=== PATIENT | male | born 1940 | race Caucasian/White ===

== ENCOUNTER 2021-10-21 21:01 | Outpatient (CLI) | payer MEDICARE, SELFPAY | END 2021-10-21 21:02 | disposition home or self-care (01) | LOC: AMB 10-28 20:25 | PROVIDERS: PCP Family Medicine; Visit Provider Family Medicine | DX: S99.911A Unspecified injury of right ankle, initial encounter (principal); W01.0XXA Fall on same level from slipping, tripping and stumbling without subsequent striking against object, initial encounter; Y92.008 Other place in unspecified non-institutional (private) residence as the place of occurrence of the external cause; Y99.8 Other external cause status | CPT/HCPCS: A0425; A0427 ==

== ENCOUNTER 2021-10-21 21:37 | Inpatient (IN) | payer MEDICARE, SELFPAY ==
[2021-10-21] VITALS (9 sets, daily range): BP systolic 107–135; BP diastolic 61–84; PULSE 73–86; RESP 12–20; TEMP 36.6; O2SAT 95–97; BMI 36.5
--- NOTE | 2021-10-21 21:46 | CRLHL7_ITS ---
For Patients: As a result of the Cures Act, medical imaging exams and procedure reports are released immediately into your electronic medical record. You may view this report before your referring provider. If you have questions, please contact your health care provider. INDICATION: Fall. Pain. COMPARISON: None. FINDINGS/IMPRESSION: Right ankle, three views. Acute oblique fracture of the distal right fibula with 3-4 millimeters of posterolateral displacement of the distal fragment and slight widening of the medial ankle mortise. Small age-indeterminate avulsion fracture fragments adjacent the tip of the medial malleolus are also present. Soft tissue swelling is noted about the ankle. Dictated by Tyler Davey MD @ 10/21/2021 11:49:58 PM Dictated by: Tyler Davey MD @ 10/21/2021 23:53:13 (Electronically Signed)
--- NOTE | 2021-10-21 21:46 | CRLHL7_ITS ---
For Patients: As a result of the Century Cures Act, medical imaging exams and procedure reports are released immediately into your electronic medical record. You may view this report before your referring provider. If you have questions, please contact your health care provider. INDICATION: FALL CT CERVICAL SPINE WITHOUT CONTRAST TECHNIQUE: Multidetector axial CT imaging was performed through the cervical spine, without contrast. Sagittal and coronal reconstructions were generated. FINDINGS: No acute fractures are identified. Multilevel degenerative change is noted in the cervical spine, including diffuse degenerative disc disease, most marked at C4-5, C5-6, and C6-7, and scattered facet joint degenerative changes. Osseous alignment is within normal limits and no subluxation is seen. Prevertebral soft tissues are unremarkable. Included portions of the airway and lung apices are within normal limits. IMPRESSION: 1. No fracture, subluxation, or other acute finding identified. 2. Cervical spondylosis, as noted above. GUNJAN MOSES MD [facility] Please note that all CT scans at this facility use dose modulation, iterative reconstruction, and/or weight-based dosing when appropriate to reduce radiation dose to as low as reasonably achievable. Dictated by: Tyler Moses MD @ 10/21/2021 23:56:25 (Electronically Signed)
--- NOTE | 2021-10-21 21:47 | CRLHL7_ITS ---
For Patients: As a result of the Century Cures Act, medical imaging exams and procedure reports are released immediately into your electronic medical record. You may view this report before your referring provider. If you have questions, please contact your health care provider. INDICATION: FALL, HEAD INJURY CT HEAD WITHOUT CONTRAST TECHNIQUE: Multiple axial CT images were performed through the head without intravenous contrast administration. COMPARISON: No previous studies are currently available for comparison. FINDINGS: No acute intracranial hemorrhage is identified. No extra-axial collections are evident and there is no mass effect or midline shift. There is mild diffuse age-related brain atrophy. Ventricular size and configuration are within normal limits for the patient`s age. Palacios-white differentiation is within normal limits. There is very much patchy hypodensity in the periventricular white matter, a nonspecific finding which most likely reflects chronic small vessel ischemic change. Intracranial atherosclerotic vascular calcifications are noted. There is a chronic-appearing nasal fracture deformity and a chronic small blowout fracture of the medial wall of the right orbit. No definite acute fractures are noted. Included portions of the paranasal sinuses show scattered minimal mucosal thickening. The mastoid air cells are normally aerated. IMPRESSION: 1. No acute intracranial abnormality identified. 2. Mild age-related brain atrophy, white matter hypodensity consistent with chronic small vessel ischemic change, and intracranial atherosclerotic vascular calcifications. 3. Chronic-appearing nasal fracture deformity and small blowout fracture of the medial wall of the right orbit. GUNJAN MOSES MD [facility] Dictated by Tyler Moses MD @ 10/21/2021 11:58:40 PM Please note that all CT scans at this facility use dose modulation, iterative reconstruction, and/or weight-based dosing when appropriate to reduce radiation dose to as low as reasonably achievable. Dictated by: Tyler Moses MD @ 10/21/2021 23:59:56 (Electronically Signed)
--- NOTE | 2021-10-21 21:49 | ED.GENADULT ---
HPI - General Adult General Time Seen by Provider: 21:39 Date Seen: 10/21/21 Chief complaint: Fall/Minor Trauma Stated complaint: Fall Source: patient Mode of arrival: EMS Limitations: no limitations History of Present Illness HPI narrative: 80-year-old male who presents with syncopal episode and ankle pain. Patient says he was out working today, had a couple of alcohol beverages tonight. Was lightheaded when he went up to go to bed, got up to go to the bathroom and got lightheaded, passed out. Brief loss of consciousness, no confusion afterward and was able to get up. He complains of right ankle pain. Denies any head injury or headache. Denies neck pain. No preceding chest pain or palpitations. No chest pain or palpitations on exam. No shortness of breath. No nausea, vomiting, or diarrhea. No recent illness. Related Data Home Medications Medication Instructions Recorded Confirmed apixaban 5 mg tablet (Eliquis) mg 10/21/21 carvedilol 6.25 mg tablet mg 10/21/21 ferrous gluconate 324 mg (38 mg mg 10/21/21 iron) tablet finasteride 5 mg tablet mg 10/21/21 furosemide 20 mg tablet mg 10/21/21 losartan 25 mg tablet mg 10/21/21 metformin 500 mg tablet,extended mg PO 10/21/21 release 24 hr omeprazole 20 mg capsule,delayed mg 10/21/21 release potassium chloride 20 mEq meq PO 10/21/21 tablet,extended release(part/cryst) (Klor-Con M) probenecid 500 mg-colchicine 0.5 tab 10/21/21 mg tablet rosuvastatin 20 mg tablet mg 10/21/21 tamsulosin 0.4 mg capsule mg PO 10/21/21 Allergies Allergy/AdvReac Type Severity Reaction Status Date / Time Penicillins Allergy Unknown Verified 10/21/21 21:46 Review of Systems Status of ROS: Reports: 10 or more systems reviewed and unremarkable except as noted in History and below PFSH PFS Social History Smoking Status: Former smoker What tobacco products do you use: cigarettes Smoking quit date/years: <= 15 years ago Do you use any of these nicotine containing products: None Second hand tobacco smoke exposure: No How often do you have a drink containing alcohol: 4 or more times a week How many standard drinks containing alcohol do you have on a typical day: 3 or 4 How often do you have six or more drinks on one occasion: Never AUDIT-C Alcohol total score: 5 Non-prescribed substance use: denies use Exam Const: Vital Signs, click to edit/add: Vital Signs - 24 hr 10/21/21 21:40 10/21/21 21:50 10/21/21 22:40 Temperature 97.8 F Pulse Rate [Left P ulse Oximeter] 75 73 79 Respiratory Rate 15 12 18 Blood Pressure [Ri ght Upper Arm] 114/67 107/64 110/62 Pulse Oximetry 95 96 97 10/21/21 22:50 10/21/21 23:00 10/21/21 23:10 Temperature Pulse Rate [Left P ulse Oximeter] 82 82 83 Respiratory Rate 12 14 12 Blood Pressure [Ri ght Upper Arm] 110/67 116/65 128/64 Pulse Oximetry 96 96 96 10/21/21 23:20 10/21/21 23:30 10/21/21 23:40 Temperature Pulse Rate [Left P ulse Oximeter] 78 80 75 Respiratory Rate 12 18 20 Blood Pressure [Ri ght Upper Arm] 125/84 135/73 132/61 Pulse Oximetry 96 97 97 Documenting provider has reviewed patient's vital signs: yes Common normals: no apparent distress, oriented x3, alert and well nourished HENMT: Common normals: normocephalic, head/scalp atraumatic, external ears normal and external nose normal Head and scalp: normocephalic and atraumatic Nose: external nose normal External ear: external ears normal Eye: Common normals: PERRL and conjunctivae normal Conjunctiva: conjunctiva(e) normal Pupil: PERRL Neck & C-Spine: Common normals: full ROM, no lymphadenopathy and supple Chest: Common normals: palpation of chest normal Resp: Common normals: normal respiratory effort and clear to auscultation bilaterally Auscultation: clear to auscultation bilaterally Cardio: Common normals: regular rate, regular rhythm and no murmurs Rate: regular rate Rhythm: regular rhythm GI: Common normals: Normal to inspection, nondistended, normoactive bowel sounds present, soft to palpation and non-tender Palpation: soft : Common normals: no CVA tenderness Bladder/kidney exam: no CVA tenderness Back & Pelvis: Common normals: no CVA tenderness, thoracic and lumbar spine normal to inspection and no thoracic nor lumbar tenderness Extremity: Common normals: full ROM and no pedal edema Other: Aluminum foam splint on right ankle, left great toe surgically absent Neuro: [place] Coma Scale: document GCS findings [place] coma scale eye opening: Spontaneous (4) [place] coma scale verbal response: Orientated (5) [place] coma scale motor response: Obey commands (6) [place] coma scale total score: 15 Common normals: oriented x3, CN's II-XII intact bilaterally and no focal motor deficits Sensorium/orientation: alert Psych: Common normals: mental status grossly normal Skin: Common normals: no rashes or lesions noted General skin exam: no rashes or lesions noted Course Reevaluation(s) Reevaluation #1: Labs so far reassuring, EKG is reassuring. X-ray of the right ankle demonstrates a distal fibular fracture but no tibial fracture and mortise is intact. Patient will be placed in a walking boot with nonweightbearing and crutches. CT scan of the head and cervical spine are pending. Time: 23:19 Reevaluation #2: CT scan of the head and neck were negative. Care was discussed with the hospitalist for admission due to syncope with dysrhythmia although the atrial fibrillation is chronic. Also concern for patient's ability to ambulate with crutches verses walker, needs PT eval. Time: 00:15 Vital Signs Vital signs: Initial Vital Signs Temperature 97.8 F 10/21/21 21:40 Temperature Source Temporal Artery Scan 10/21/21 21:40 Pulse Rate 86 10/21/21 21:40 Respiratory Rate 15 10/21/21 21:40 Respiratory Effort 10/21/21 21:40 Respiratory Depth Normal 10/21/21 21:40 Respiratory Pattern 10/21/21 21:40 Blood Pressure 108/66 10/21/21 21:40 Blood Pressure Mean 80 10/21/21 21:40 Blood Pressure Position Supine 10/21/21 21:40 Pulse Oximetry 97 10/21/21 21:40 Oxygen Delivery Method 10/21/21 21:40 Vital Signs Temperature 97.8 F 10/21/21 21:40 Pulse Rate 86 10/21/21 21:40 Respiratory Rate 15 10/21/21 21:40 Blood Pressure 108/66 10/21/21 21:40 Pulse Oximetry 97 10/21/21 21:40 Temperature 97.8 F 10/21/21 21:40 Pulse Rate 75 10/21/21 23:40 Respiratory Rate 20 10/21/21 23:40 Blood Pressure 132/61 10/21/21 23:40 Pulse Oximetry 97 10/21/21 23:40 Medical Decision Making MDM Narrative Medical decision making narrative: Patient seen and examined, prior records are reviewed. Trauma team activation. Differential diagnosis includes but not limited to intracranial hemorrhage, acute CVA, electrolyte disturbance, dysrhythmia, acute coronary syndrome, sepsis, dehydration. Patient presents with a syncopal episode at home. Out working today, may be little dehydrated as was found to be hypotensive. Patient also admits to alcohol use tonight. Right ankle pain and splint was placed. No external signs of trauma. No palpitations or chest pain prior to syncopal episode. CT scan of the head and neck, right ankle x-rays are ordered along with labs. EKG is reassuring. Medical Records Medical records reviewed: Yes I reviewed the patient's medical records Lab Data Lab results reviewed: Yes I reviewed the patient's lab results Labs: Lab Results 10/21/21 10/21/21 10/21/21 Range/Units 21:48 21:58 21:58 WBC 5.43 (4.50-11.00) K/uL RBC 3.73 L (4.30-5.90) m/uL Hgb 12.1 L (13.5-17.5) gm/dL Hct 35.5 L (37.0-53.0) % MCV 95 (80-100) fL MCH 32 (26-34) pg MCHC 34 (32-36) gm/dL RDW Coeff of Ambrosio 13.4 (11.5-15.5) % Plt Count 153 (140-440) K/uL Neut % (Auto) 59.3 (42.0-72.0) % Lymph % (Auto) 27.4 (20-44) % [place] % (Auto) 10.9 (0.0-11.0) % Eos % (Auto) 1.3 (0.0-7.0) % Baso % (Auto) 0.7 (0.0-3.0) % Neut # (Auto) 3.22 (1.7-7.0) K/uL Lymph # (Auto) 1.49 (0.90-2.90) K/uL [place] # (Auto) 0.60 (0.00-0.90) K/UL Eos # (Auto) 0.07 (0.00-0.50) K/uL Baso # (Auto) 0.04 (0.00-0.30) K/uL Abs Immat Gran (auto) 0.02 (0.00-0.30) K/uL Sodium 139 (135-149) mmol/L Potassium 4.2 (3.6-5.1) mmol/L Chloride 104 (96-114) mmol/L Carbon Dioxide 21 (20-32) mmol/L BUN 24 (7-30) mg/dL Creatinine 1.9 H (0.5-1.5) mg/dL Estimated Creat Clear 31.00 Glucose 148 H (60-115) mg/dL Calcium 9.3 (8.4-10.6) mg/dL Ethyl Alcohol (0.01-0.03) % POC Troponin I 0.01 (0.01-0.04) ng/ml 10/21/21 Range/Units 21:58 WBC (4.50-11.00) K/uL RBC (4.30-5.90) m/uL Hgb (13.5-17.5) gm/dL Hct (37.0-53.0) % MCV (80-100) fL MCH (26-34) pg MCHC (32-36) gm/dL RDW Coeff of [place]rosio (11.5-15.5) % Plt Count (140-440) K/uL Neut % (Auto) (42.0-72.0) % Lymph % (Auto) (20-44) % [place] % (Auto) (0.0-11.0) % Eos % (Auto) (0.0-7.0) % Baso % (Auto) (0.0-3.0) % Neut # (Auto) (1.7-7.0) K/uL Lymph # (Auto) (0.90-2.90) K/uL [place] # (Auto) (0.00-0.90) K/UL Eos # (Auto) (0.00-0.50) K/uL Baso # (Auto) (0.00-0.30) K/uL Abs Immat Gran (auto) (0.00-0.30) K/uL Sodium (135-149) mmol/L Potassium (3.6-5.1) mmol/L Chloride (96-114) mmol/L Carbon Dioxide (20-32) mmol/L BUN (7-30) mg/dL Creatinine (0.5-1.5) mg/dL Estimated Creat Clear Glucose (60-115) mg/dL Calcium (8.4-10.6) mg/dL Ethyl Alcohol 0.11 H (0.01-0.03) % POC Troponin I (0.01-0.04) ng/ml Imaging Data CT scan - head: Attestation: I have reviewed the pertinent imaging results. My impression: Negative right ankle: My impression: Distal fibula fracture ECG Data Attestation: I personally reviewed and interpreted this ECG as follows: Prior ECG tracings: not available for review Interpretation: Performed at 9:39 a.m. personally reviewed and interpreted by me demonstrates atrial fibrillation rate 79, no acute ischemic changes, normal axis, QTC 444. Discharge Plan Discharge Clinical Impression: Acute kidney injury, Atrial fibrillation, Anticoagulant long-term use, Syncope, Closed fracture of right distal fibula Patient Disposition: Admitted As Inpatient
[2021-10-21 22:11] LABS: Troponin, Point-of-Care* 0.01 ng/ml (0.01-0.04)
[2021-10-21 22:16] LABS: Chloride* 104 mmol/L (96-114); Potassium* 4.2 mmol/L (3.6-5.1); Sodium* 139 mmol/L (135-149)
[2021-10-21 22:19] LABS: Carbon Dioxide* 21 mmol/L (20-32); Creatinine* 1.9 mg/dL (0.5-1.5); Estimated Glomerular Filt Rate 35.66
[2021-10-21 22:20] LABS: Blood Urea Nitrogen* 24 mg/dL (7-30); Calcium* 9.3 mg/dL (8.4-10.6); Glucose* 148 mg/dL (60-115)
[2021-10-21 22:48] LABS: Basophils Absolute Auto 0.04 K/uL (0.00-0.30); Basophils Percent Auto 0.7 % (0.0-3.0); Eosinophils Absolute Auto 0.07 K/uL (0.00-0.50); Eosinophils Percent Auto 1.3 % (0.0-7.0); Hematocrit 35.5 % (37.0-53.0); Hemoglobin* 12.1 gm/dL (13.5-17.5); Immature Granulocytes Abs Auto 0.02 K/uL (0.00-0.30); Lymphocytes Absolute Auto 1.49 K/uL (0.90-2.90); Lymphocytes Percent Auto 27.4 % (20-44); Mean Corpuscular HGB Conc 34 gm/dL (32-36); Mean Corpuscular Hemoglobin 32 pg (26-34); Mean Corpuscular Volume 95 fL (80-100); Monocytes Percent Auto 10.9 % (0.0-11.0); Neutrophils Absolute Auto 3.22 K/uL (1.7-7.0); Neutrophils Percent Auto 59.3 % (42.0-72.0); Platelet Count* 153 K/uL (140-440); RDW Coefficient of Variation % 13.4 % (11.5-15.5); Red Blood Count 3.73 m/uL (4.30-5.90); White Blood Count* 5.43 K/uL (4.50-11.00)
[2021-10-21 23:19] LABS: Slide Review Reflex No
[2021-10-21 23:31] LABS: Ethanol* 0.11 % (0.01-0.03)
[2021-10-22] VITALS (12 sets, daily range): BP systolic 135–155; BP diastolic 74–96; PULSE 78–86; RESP 16–20; TEMP 36.3–37.1; O2SAT 94–97; BMI 35.7
[2021-10-22 00:09] LABS: Appearance Urine Clear (Clear); Bilirubin Urine Negative (Negative); Blood Urine Negative (Negative); Color Urine Yellow (Yellow); Glucose Urine Negative (Negative); Ketones Urine Negative (Negative); Leukocyte Esterase Urine Negative (Negative); Nitrite Urine Negative (Negative); Protein Urine Negative (Negative); Urobilinogen Urine 0.2 (0.2-1.0); pH Urine 5.5 (5.0-8.5)
--- NOTE | 2021-10-22 00:09 | ED.NURSE ---
Report called to [facility]ORK[facility]
[2021-10-22 00:24] LABS: PCR FLU A Negative PCR FLU A (Negative); PCR FLU B Negative PCR FLU B (Negative)
[2021-10-22 00:28] LABS: RBC Urine 0-2 (0-2); Squamous Epithelial Cell Urine Few (None-Few)
[2021-10-22 00:29] LABS: Coarse Granular Casts Urine Moderate
[2021-10-22] MEDS: ACETAMINOPHEN 500 MG TABLET 1000 MG PO (02:00)
[2021-10-22 02:07] LABS: SARS PCR* Negative SARS-CoV-2 (Negative)
--- NOTE | 2021-10-22 02:38 | PM.IMCN1 ---
Date of Consult Primary Care Provider: Mercedes Anthony MD Consult Narrative Narrative: Christophe Uribe Hospitalist ADMISSION SUPPORT NOTE eHospitalist was contacted by Dr. Centeno with request of admission support. Chief complaint: Syncope HPI: The patient reports that he was going to the shower when he felt lightheaded after having his meal. He then passed out but denies hitting his head. He denies chest pain shortness of breath nausea vomiting. Review of systems other than mentioned above is negative Home Medications/Pertinent Medical History/Pertinent Social History: Reviewed see EMR for details Review of Systems Status of ROS: Reports: 10 or more systems reviewed and unremarkable except as noted in History and below PFSH [facility] Surgical History History of coronary artery bypass graft Social History (Updated 10/22/21 @ 00:16 by Elroy Caceres MD) Highest level of school completed/degree received: high school graduate Smoking Status: Former smoker What tobacco products do you use: cigarettes Smoking quit date/years: >15 years ago Do you use any of these nicotine containing products: None Second hand tobacco smoke exposure: No How often do you have a drink containing alcohol: 4 or more times a week Alcohol type: hard liquor How many standard drinks containing alcohol do you have on a typical day: 3 or 4 How often do you have six or more drinks on one occasion: Never AUDIT-C Alcohol total score: 5 Non-prescribed substance use: denies use Caffeine: No service: No Meds Home Medications and Allergies Home Medications Medication Instructions Recorded Confirmed Type apixaban 5 mg tablet (Eliquis) mg 10/21/21 History carvedilol 6.25 mg tablet mg 10/21/21 History ferrous gluconate 324 mg (38 mg mg 10/21/21 History iron) tablet finasteride 5 mg tablet mg 10/21/21 History furosemide 20 mg tablet mg 10/21/21 History losartan 25 mg tablet mg 10/21/21 History metformin 500 mg tablet,extended mg PO 10/21/21 History release 24 hr omeprazole 20 mg capsule,delayed mg 10/21/21 History release potassium chloride 20 mEq meq PO 10/21/21 History tablet,extended release(part/cryst) (Klor-Con M) probenecid 500 mg-colchicine 0.5 tab 10/21/21 History mg tablet rosuvastatin 20 mg tablet mg 10/21/21 History tamsulosin 0.4 mg capsule mg PO 10/21/21 History Allergies Allergy/AdvReac Type Severity Reaction Status Date / Time Penicillins Allergy Unknown Verified 10/21/21 21:46 Exam Const: Vital Signs, click to edit/add: Vital Signs - 24 hr 10/21/21 21:40 10/21/21 21:50 10/21/21 22:40 Temperature 97.8 F Pulse Rate [Left P ulse Oximeter] 75 73 79 Respiratory Rate 15 12 18 Blood Pressure [Le ft Arm] Blood Pressure [Ri ght Upper Arm] 114/67 107/64 110/62 Pulse Oximetry 95 96 97 10/21/21 22:50 10/21/21 23:00 10/21/21 23:10 Temperature Pulse Rate [Left P ulse Oximeter] 82 82 83 Respiratory Rate 12 14 12 Blood Pressure [Le ft Arm] Blood Pressure [Ri ght Upper Arm] 110/67 116/65 128/64 Pulse Oximetry 96 96 96 10/21/21 23:20 10/21/21 23:30 10/21/21 23:40 Temperature Pulse Rate [Left P ulse Oximeter] 78 80 75 Respiratory Rate 12 18 20 Blood Pressure [Le ft Arm] Blood Pressure [Ri ght Upper Arm] 125/84 135/73 132/61 Pulse Oximetry 96 97 97 10/22/21 02:19 Temperature 97.4 F L Pulse Rate [Left P ulse Oximeter] 81 Respiratory Rate Blood Pressure [Le ft Arm] 155/82 H Blood Pressure [Ri ght Upper Arm] Pulse Oximetry 97 Common normals: no apparent distress and oriented x3 General appearance: cooperative, comfortable and well developed Nutritional appearance: obese Orientation/consciousness: Yes awake, Yes oriented to person, Yes oriented to place and Yes oriented to time HENMT: Common normals: normocephalic Head and scalp: normocephalic Mouth: oral and palatal mucosa normal Eye: General eye: normal appearance of both eyes Chest: Common normals: inspection of chest normal Resp: Common normals: clear to auscultation bilaterally Effort & inspection: able to speak in complete sentences Auscultation: clear to auscultation bilaterally Cardio: Common normals: regular rate, S1 normal heart sound and S2 normal heart sound; irregular rhythm (irregular rhythm) Rate: regular rate Rhythm: abnormal rhythm (irregular rhythm) Heart sounds: S1 normal and S2 normal Extremity: Common normals: no pedal edema General: other findings (right foot in boot) Neuro: Common normals: oriented x3 Sensorium/orientation: awake, oriented to person, oriented to place and oriented to time Cranial nerves: CN normal except as noted Speech: speech normal Motor exam: other (no gross motor deficit noted) Psych: Common normals: thought process normal, cooperative, affect normal and speech normal Speech: normal speech Thought process: normal thought process Skin: Common normals: no rashes or lesions noted General skin exam: no rashes or lesions noted Labs Labs: Short CBC 10/21/21 Range/Units 21:58 WBC 5.43 (4.50-11.00) K/uL Hgb 12.1 L (13.5-17.5) gm/dL Hct 35.5 L (37.0-53.0) % Plt Count 153 (140-440) K/uL BMP 10/21/21 21:58 Sodium 139 Potassium 4.2 Chloride 104 Carbon Dioxide 21 BUN 24 Creatinine 1.9 H Glucose 148 H Calcium 9.3 Urine 10/21/21 Range/Units 23:50 Urine Color Yellow (Yellow) Urine Appearance Clear (Clear) Urine pH 5.5 (5.0-8.5) Ur Specific [place] 1.020 (1.000-1.030) Urine Protein Negative (Negative) Urine Glucose (UA) Negative (Negative) Assessment and Plan Assessment and plan (1) Syncope: Status: Acute Assessment and Plan: likely secondary to combination of alcohol intoxication and fall. Continue to monitor of telemetry and hydrate (2) Atrial fibrillation: Status: Acute Assessment and Plan: Stable on xarelto (3) Closed fracture of right distal fibula: Status: Acute Assessment and Plan: needs ortho evaluation as out patient (4) Coronary artery disease: Status: Acute Assessment and Plan: stable monitor (5) Dyslipidemia: Status: Acute Assessment and Plan: stable on statin (6) Diabetes mellitus: Status: Acute Assessment and Plan: stable on sliding scale insulin (7) GERD (gastroesophageal reflux disease): Status: Acute Assessment and Plan: stable on protonix (8) BPH (benign prostatic hyperplasia): Status: Acute Assessment and Plan: given syncope hold flomax and finasteride for now (9) Gout: Status: Acute Assessment and Plan: stable
[2021-10-22] MEDS: OXYCODONE 5 MG TABLET PO ×3 (04:02→21:12)
[2021-10-22] MEDS: 0.9 % SODIUM CHLORIDE 1000 ml 1,000 ML 100 ML IV (04:54)
--- NOTE | 2021-10-22 05:35 | PC.NURSE ---
Admission Note: Pt arrived to the floor via ED cart @ 0210, was able to slide himself over from cart to the bed, able to position himself comfortably in bed. Pt consistenty rates pain @ 6-7/10, up to 9/10 with movement of RLE, but is hesitant to take pain medication. Combination of Tylenol and oxycodone have kept him comfortable and satisfied. Pt has a known hx of A-fib and is on Elequis to manage this, no S/S of bleeding noted as a result of his fall at home. Pt is pleasant and cooperative, A&Ox3. Pt understands and agrees with his NWB status until he can be seen by PT for direction on self transfers and mobility.
[2021-10-22 08:18] LABS: Glucose, Point-of-Care* 136 mg/dl (60-115)
[2021-10-22] MEDS: FUROSEMIDE 20 MG TABLET 40 MG PO ×2 (09:10→16:28)
[2021-10-22] MEDS: TAMSULOSIN HCL 0.4 MG CAPSULE 0.8 MG PO (09:10)
[2021-10-22] MEDS: POTASSIUM CHLORIDE 10 MEQ CAPSULE ER 20 MEQ PO (09:10)
[2021-10-22] MEDS: LOSARTAN POTASSIUM 50 MG TABLET 25 MG PO (09:11)
[2021-10-22] MEDS: OMEPRAZOLE 20 MG CAPSULE DR PO (09:11)
[2021-10-22] MEDS: FINASTERIDE 5 MG TABLET PO (09:12)
[2021-10-22] MEDS: FERROUS SULFATE 325 MG TABLET PO (09:12)
[2021-10-22] MEDS: carvediloL 6.25 MG TABLET PO ×2 (09:12→21:13)
[2021-10-22] MEDS: ROSUVASTATIN CALCIUM 10 MG TABLET 20 MG PO (09:13)
[2021-10-22 09:41] LABS: Basophils Absolute Auto 0.03 K/uL (0.00-0.30); Basophils Percent Auto 0.6 % (0.0-3.0); Eosinophils Absolute Auto 0.07 K/uL (0.00-0.50); Eosinophils Percent Auto 1.4 % (0.0-7.0); Hematocrit 33.4 % (37.0-53.0); Hemoglobin* 11.7 gm/dL (13.5-17.5); Immature Granulocytes Abs Auto 0.01 K/uL (0.00-0.30); Lymphocytes Absolute Auto 1.22 K/uL (0.90-2.90); Lymphocytes Percent Auto 24.9 % (20-44); Mean Corpuscular HGB Conc 35 gm/dL (32-36); Mean Corpuscular Hemoglobin 33 pg (26-34); Mean Corpuscular Volume 93 fL (80-100); Monocytes Percent Auto 15.3 % (0.0-11.0); Neutrophils Absolute Auto 2.82 K/uL (1.7-7.0); Neutrophils Percent Auto 57.6 % (42.0-72.0); Platelet Count* 133 K/uL (140-440); RDW Coefficient of Variation % 13.3 % (11.5-15.5)
[2021-10-22 09:42] LABS: Slide Review Reflex No
[2021-10-22 09:54] LABS: Albumin* 4.2 g/dL (3.3-5.0); Chloride* 104 mmol/L (96-114); Sodium* 136 mmol/L (135-149)
[2021-10-22 09:55] LABS: Potassium* 4.3 mmol/L (3.6-5.1)
[2021-10-22 09:57] LABS: Alanine Aminotransferase* 38 U/L (4-50); Alkaline Phosphatase* 119 U/L (40-150); Aspartate Amino Transferase* 34 U/L (12-35); Bilirubin Total* 1.2 mg/dL (0.1-1.5); Blood Urea Nitrogen* 26 mg/dL (7-30); Carbon Dioxide* 25 mmol/L (20-32); Creatinine* 1.4 mg/dL (0.5-1.5); Est. Creatinine Clearance* 42.07; Estimated Glomerular Filt Rate 51.45; Glucose* 171 mg/dL (60-115); Total Protein* 6.7 g/dL (6.0-8.3)
[2021-10-22 09:58] LABS: Calcium* 9.3 mg/dL (8.4-10.6); Magnesium* 1.5 mg/dL (1.5-2.6)
--- NOTE | 2021-10-22 14:39 | PC.SOCIAL ---
Social work: Pt had requested information on the cost to rent a hospital bed privately for use at home if needed. Called [facility] and confirmed they rent fully electric hospital beds for $225/month including drop off and bulk picker. They currently have beds available. Provided pt with written information on the cost and location. Pt was appreciative of the information and requested neonatal social worker visit him again tomorrow to discuss his decision on discharge plan.
--- NOTE | 2021-10-22 14:56 | PC.SOCIAL ---
Met with pt. and spouse to discuss discharge plans. Pt. and spouse are deciding between discharging home or a SNF short-term. Pt. states he can live in his basement as he recovers from surgery. Pt.'s spouse has obtained a w/c and raised toilet seat. The concern was pt. would nor be able to sleep on the low couch in the basement. Discussed renting a hospital bed and social worker health services verified [facility] bed for $225 a month with free delivery and worm picker. Pt. also has Medicare Blue PPO which does not require a 3 night stay for SNF coverage, but needs a prior auth. If pt. needs a SNF he prefers the [facility]. Pt. wants to wait to decide until tomorrow about discharging home with a hospital bed vs. going to a senior care short-term. He is waiting to see when he will ready for surgery. services clerk will follow-up with pt. tomorrow for discharge plans.
--- NOTE | 2021-10-22 15:39 | PM.IMPN1 ---
Progress Note: A&P Assessment and plan (1) Closed fracture of right distal fibula: Problem details: patient has an unstable fracture of his ankle. Ankle mortise is widened. This will need surgery. Due to anticoagulation with apixaban surgery should be delayed at least a couple days. He also has a lot of swelling in his ankle so it would help to get the swelling down before surgery. Unclear however whether patient can safely return home with nonweightbearing status on that right ankle due to his immobility. Will continue to assess mobility. Possible options include surgery on Wednesday in 2 days if he is unable to go home or possibly surgery next week if he is able to manage at home over the weekend. In the meantime elevate his leg and hold his anticoagulation temporarily Status: Acute (2) Syncope: Problem details: History suggests this was an episode of syncope with a prodrome of lightheadedness. Will continue to monitor here vitals, telemetry, blood pressure. Status: Acute (3) Alcohol abuse: Problem details: Patient reports that he does not drink every day. Status: Acute (4) Atrial fibrillation: Problem details: Continue rate control. Hold anticoagulation temporarily pending decision on surgery Status: Acute (5) Acute kidney injury: Problem details: creatinine 1.9 on admission. Baseline is 1.4. Back to baseline today Status: Acute (6) Anticoagulant long-term use: Problem details: hold anticoagulation pending surgical decision Status: Acute (7) Coronary artery disease: Problem details: currently asymptomatic Status: Acute (8) Diabetes mellitus: Problem details: continue to monitor on normal blood pressure medicines and sliding scale insulin Status: Acute Time Spent With Patient Total time spent: total time spent today is 50 minutes, 30 minutes in coordination of care and discussing with patient and other providers a plan of care for managing ankle fracture and a plan for disposition to home. Subjective Date Seen: 10/22/21 Interval history: 80-year-old male seen in followup of fall or possibly syncope yesterday at home. He reports he was working outside in the heat and not drinking enough fluids. He was drinking alcohol however and was intoxicated on arrival in the emergency department. He fell injuring his right ankle and was unable to get up. He reports otherwise being well and uninjured. He did not have a head or neck injury. He is not having any shortness of breath or chest pain. He is not aware of palpitations. No previous other episodes of loss of consciousness. He lives at home with his . Normally he lives up stairs in his house but in the lower level of his house he can get around without doing stairs. He does have a bathroom and that level. He is planning on sleeping on a low couch. This was his strategy after he had open-heart surgery. Exam Narrative: Exam Narrative: He is alert and appears in no distress. Speech is normal. Oropharynx with small airway. Respirations are clear to auscultation. Cardiovascular: S1, S2, regular rate and rhythm. No murmur gallop or rub. Abdomen: Bowel sounds active. Abdomen is soft without tenderness or mass. Upper extremities are normal with intact pulses and sensation. Lower extremities are examined. He has a cam walker boot on his right lower extremity. His toes have intact sensation and good capillary refill. Left lower extremity has trace edema and intact pulses. Const: Vital Signs, click to edit/add: Vital Signs - 24 hr 10/21/21 21:40 10/21/21 21:50 10/21/21 22:40 Temperature 97.8 F Pulse Rate Pulse Rate [Left P ulse Oximeter] 75 73 79 Respiratory Rate 15 12 18 Blood Pressure [Le ft Arm] Blood Pressure [Ri ght Upper Arm] 114/67 107/64 110/62 Pulse Oximetry 95 96 97 10/21/21 22:50 10/21/21 23:00 10/21/21 23:10 Temperature Pulse Rate Pulse Rate [Left P ulse Oximeter] 82 82 83 Respiratory Rate 12 14 12 Blood Pressure [Le ft Arm] Blood Pressure [Ri ght Upper Arm] 110/67 116/65 128/64 Pulse Oximetry 96 96 96 10/21/21 23:20 10/21/21 23:30 10/21/21 23:40 Temperature Pulse Rate Pulse Rate [Left P ulse Oximeter] 78 80 75 Respiratory Rate 12 18 20 Blood Pressure [Le ft Arm] Blood Pressure [Ri ght Upper Arm] 125/84 135/73 132/61 Pulse Oximetry 96 97 97 10/22/21 02:19 10/22/21 02:30 10/22/21 02:33 Temperature 97.4 F L 97.4 F L 97.4 F L Pulse Rate Pulse Rate [Left P ulse Oximeter] 81 81 81 Respiratory Rate 20 16 Blood Pressure [Le ft Arm] 155/82 H 155/82 H 155/82 H Blood Pressure [Ri ght Upper Arm] Pulse Oximetry 97 97 97 10/22/21 02:35 10/22/21 05:24 10/22/21 07:30 Temperature 98.7 F Pulse Rate 80 82 Pulse Rate [Left P ulse Oximeter] 81 Respiratory Rate 18 Blood Pressure [Le ft Arm] 148/75 H Blood Pressure [Ri ght Upper Arm] Pulse Oximetry 97 96 10/22/21 11:35 10/22/21 15:32 Temperature 98.4 F 97.7 F Pulse Rate Pulse Rate [Left P ulse Oximeter] 85 78 Respiratory Rate 18 18 Blood Pressure [Le ft Arm] 136/74 135/80 Blood Pressure [Ri ght Upper Arm] Pulse Oximetry 96 95 Documenting provider has reviewed patient's vital signs: yes Labs Labs: Laboratory Results - last 24 hr 10/21/21 10/21/21 10/21/21 21:48 21:58 21:58 WBC 5.43 RBC 3.73 L Hgb 12.1 L Hct 35.5 L MCV 95 MCH 32 MCHC 34 RDW Coeff of Ambrosio 13.4 Plt Count 153 Neut % (Auto) 59.3 Lymph % (Auto) 27.4 [place] % (Auto) 10.9 Eos % (Auto) 1.3 Baso % (Auto) 0.7 Neut # (Auto) 3.22 Lymph # (Auto) 1.49 [place] # (Auto) 0.60 Eos # (Auto) 0.07 Baso # (Auto) 0.04 Abs Immat Gran (auto) 0.02 Sodium 139 Potassium 4.2 Chloride 104 Carbon Dioxide 21 BUN 24 Creatinine 1.9 H Estimated Creat Clear 31.00 Glucose 148 H Calcium 9.3 Magnesium Total Bilirubin AST ALT Alkaline Phosphatase Total Protein Albumin Urine Color Urine Appearance Urine pH Ur Specific [place] Urine Protein Urine Glucose (UA) Urine Ketones Urine Blood Urine Nitrite Urine Bilirubin Urine Urobilinogen Ur Leukocyte Esterase Urine RBC Urine WBC Ur Squamous Epith Cells Urine Bacteria Coarse Granular Casts Ethyl Alcohol SARS-CoV-2 (PCR) Influenza Type A (PCR) Influenza Type B (PCR) POC Glucose POC Troponin I 0.01 10/21/21 10/21/21 10/21/21 21:58 23:39 23:50 WBC RBC Hgb Hct MCV MCH MCHC RDW Coeff of Ambrosio Plt Count Neut % (Auto) Lymph % (Auto) [place] % (Auto) Eos % (Auto) Baso % (Auto) Neut # (Auto) Lymph # (Auto) [place] # (Auto) Eos # (Auto) Baso # (Auto) Abs Immat Gran (auto) Sodium Potassium Chloride Carbon Dioxide BUN Creatinine Estimated Creat Clear Glucose Calcium Magnesium Total Bilirubin AST ALT Alkaline Phosphatase Total Protein Albumin Urine Color Yellow Urine Appearance Clear Urine pH 5.5 Ur Specific [place] 1.020 Urine Protein Negative Urine Glucose (UA) Negative Urine Ketones Negative Urine Blood Negative Urine Nitrite Negative Urine Bilirubin Negative Urine Urobilinogen 0.2 Ur Leukocyte Esterase Negative Urine RBC 0-2 Urine WBC 5-10 A Ur Squamous Epith Cells Few Urine Bacteria None Coarse Granular Casts Moderate A Ethyl Alcohol 0.11 H SARS-CoV-2 (PCR) Negative SARS-CoV-2 Influenza Type A (PCR) Negative PCR FLU A Influenza Type B (PCR) Negative PCR FLU B POC Glucose POC Troponin I 10/22/21 10/22/21 10/22/21 08:15 09:14 09:14 WBC 4.90 RBC 3.60 L Hgb 11.7 L Hct 33.4 L MCV 93 MCH 33 MCHC 35 RDW Coeff of Ambrosio 13.3 Plt Count 133 L Neut % (Auto) 57.6 Lymph % (Auto) 24.9 [place] % (Auto) 15.3 H Eos % (Auto) 1.4 Baso % (Auto) 0.6 Neut # (Auto) 2.82 Lymph # (Auto) 1.22 [place] # (Auto) 0.70 Eos # (Auto) 0.07 Baso # (Auto) 0.03 Abs Immat Gran (auto) 0.01 Sodium 136 Potassium 4.3 Chloride 104 Carbon Dioxide 25 BUN 26 Creatinine 1.4 Estimated Creat Clear 42.07 Glucose 171 H Calcium 9.3 Magnesium 1.5 Total Bilirubin 1.2 AST 34 ALT 38 Alkaline Phosphatase 119 Total Protein 6.7 Albumin 4.2 Urine Color Urine Appearance Urine pH Ur Specific [place] Urine Protein Urine Glucose (UA) Urine Ketones Urine Blood Urine Nitrite Urine Bilirubin Urine Urobilinogen Ur Leukocyte Esterase Urine RBC Urine WBC Ur Squamous Epith Cells Urine Bacteria Coarse Granular Casts Ethyl Alcohol SARS-CoV-2 (PCR) Influenza Type A (PCR) Influenza Type B (PCR) POC Glucose 136 H POC Troponin I
[2021-10-22 17:40] LABS: Troponin I* < 0.01 ng/mL (0.01-0.04)
[2021-10-22] MEDS: METFORMIN ER 500 MG PO (18:19)
--- NOTE | 2021-10-22 18:28 | PC.NURSE ---
end of shift. pt has been pleasant. Pt rates pain @ 5-6/10, he got po oxycodone this am. with some relief. Pt hx of A-fib, tele shows A-Fib. SL is patent. he is up with SBA walker and NWB. PT worked with him. splint and brace was placed by ortho today. he is eating, drinking and voiding. he is a fall risk and alarms are on. he is using a urinal
[2021-10-23] VITALS (15 sets, daily range): BP systolic 108–163; BP diastolic 63–88; PULSE 70–91; RESP 14–20; TEMP 36.5–37.1; O2SAT 94–99
[2021-10-23] MEDS: OXYCODONE 5 MG TABLET PO (02:39)
--- NOTE | 2021-10-23 06:36 | PC.NURSE ---
SHIFT NOTE [id number]: PT PLEASANT AND COOPERATIVE. PT IS NWB TO RIGHT EXTREMITY. PT HAS NOT AMBULATED THIS SHIFT. PT DENIES CHEST PAIN, SOB, N/V. VSS AND WNL ON RA; AFEBRILE. PT RATES RLE PAIN 5-10/10 WITH RELIEF FROM ICE PACK, ELEVATION, PRN OXYCODONE. TELE READS AFIB. PT RECEIVED 6UNIT S/S FOR BG OF 223. XARELTO HELD UNTIL SURGERY. SURGERY DELAYED UNTIL SWELLING DECREASES. RIGHT ANKLE IS SPLINTED AND WRAPPED WITH REMI WRAPS BY ORTHO. PT HAS BEEN USING URINAL.
[2021-10-23] MEDS: OMEPRAZOLE 20 MG CAPSULE DR PO (07:03)
[2021-10-23 07:23] LABS: Basophils Absolute Auto 0.03 K/uL (0.00-0.30); Basophils Percent Auto 0.5 % (0.0-3.0); Eosinophils Absolute Auto 0.09 K/uL (0.00-0.50); Eosinophils Percent Auto 1.5 % (0.0-7.0); Hematocrit 32.5 % (37.0-53.0); Hemoglobin* 11.3 gm/dL (13.5-17.5); Immature Granulocytes Abs Auto 0.01 K/uL (0.00-0.30); Mean Corpuscular HGB Conc 35 gm/dL (32-36); Mean Corpuscular Hemoglobin 33 pg (26-34); Mean Corpuscular Volume 94 fL (80-100); Neutrophils Absolute Auto 3.32 K/uL (1.7-7.0); Neutrophils Percent Auto 56.8 % (42.0-72.0); Platelet Count* 125 K/uL (140-440); RDW Coefficient of Variation % 13.4 % (11.5-15.5); Red Blood Count 3.46 m/uL (4.30-5.90); White Blood Count* 5.84 K/uL (4.50-11.00)
[2021-10-23 07:30] LABS: Slide Review Reflex No
[2021-10-23] MEDS: POTASSIUM CHLORIDE 10 MEQ CAPSULE ER 20 MEQ PO (07:53)
[2021-10-23 07:54] LABS: Chloride* 102 mmol/L (96-114); Sodium* 137 mmol/L (135-149)
[2021-10-23 07:55] LABS: Potassium* 3.9 mmol/L (3.6-5.1)
[2021-10-23 07:57] LABS: Creatinine* 1.3 mg/dL (0.5-1.5); Est. Creatinine Clearance* 45.31; Estimated Glomerular Filt Rate 56.23
[2021-10-23 07:58] LABS: Blood Urea Nitrogen* 26 mg/dL (7-30); Calcium* 8.9 mg/dL (8.4-10.6); Carbon Dioxide* 28 mmol/L (20-32); Glucose* 154 mg/dL (60-115)
[2021-10-23] MEDS: TAMSULOSIN HCL 0.4 MG CAPSULE 0.8 MG PO (09:15)
[2021-10-23] MEDS: LACTATED RINGERS 1000 ML 1,000 ML 125 ML IV (09:16)
[2021-10-23] MEDS: ROSUVASTATIN CALCIUM 10 MG TABLET 20 MG PO (09:17)
[2021-10-23] MEDS: LOSARTAN POTASSIUM 50 MG TABLET 25 MG PO (09:18)
[2021-10-23] MEDS: FERROUS SULFATE 325 MG TABLET PO (09:19)
[2021-10-23] MEDS: FINASTERIDE 5 MG TABLET PO (09:19)
[2021-10-23] MEDS: carvediloL 6.25 MG TABLET PO ×2 (09:19→21:21)
--- NOTE | 2021-10-23 10:21 | PM.IMPN1 ---
Progress Note: A&P Assessment and plan (1) Closed fracture of right distal fibula: Problem details: Unstable ankle fracture. Status: Acute Assessment and Plan: Surgery today. (2) Syncope: Problem details: Reassuring evaluations so far. No recurrent symptoms. Status: Acute (3) Alcohol abuse: Problem details: Patient reports that he does not drink every day. Status: Acute Assessment and Plan: No evidence of alcohol withdrawal so far (4) Atrial fibrillation: Problem details: Continue rate control. Status: Acute Assessment and Plan: Hold anticoagulation until after surgery (5) Acute kidney injury: Problem details: creatinine 1.9 on admission. Baseline is 1.4. Back to baseline today Status: Acute (6) Anticoagulant long-term use: Problem details: hold anticoagulation pending surgical decision Status: Acute (7) Coronary artery disease: Problem details: currently asymptomatic Status: Acute (8) Diabetes mellitus: Problem details: continue to monitor on normal blood pressure medicines and sliding scale insulin Status: Acute Time Spent With Patient Total time spent: Total time spent today is 45 minutes, 30 minutes in coordination of care and discussing with patient, therapy and surgery plan of care going forward to manage his fracture Subjective Date Seen: 10/23/21 Interval history: 80-year-old male seen in followup of right ankle fracture. He reports generally doing well today. During the night he had an episode of ankle pain but that is now feeling better. He has had no other symptoms of illness. No palpitations, chest pain, shortness of breath or lightheadedness. He is tentatively pending surgery this afternoon, ORIF ankle fracture. He was working with therapy yesterday on mobility. He is struggling to get around with a walker without putting weight on his ankle. He confirms for me that his last dose of apixaban was on Wednesday about 5:00 p.m. Exam Narrative: Exam Narrative: He is alert and appears in no distress. Breathing is unlabored. Cardiovascular: S1, S2, somewhat irregular rhythm. Abdomen is soft without tenderness or mass. He has intact pulses and sensation in his toes of his right foot. Const: Vital Signs, click to edit/add: Vital Signs - 24 hr 10/22/21 11:35 10/22/21 15:32 10/22/21 15:43 Temperature 98.4 F 97.7 F Pulse Rate 83 Pulse Rate [Left P ulse Oximeter] 85 78 Respiratory Rate 18 18 Blood Pressure [Le ft Arm] 136/74 135/80 Pulse Oximetry 96 95 10/22/21 21:00 10/22/21 23:00 10/22/21 23:43 Temperature 98.2 F 97.8 F Pulse Rate 79 Pulse Rate [Left P ulse Oximeter] 84 86 Respiratory Rate 20 18 Blood Pressure [Le ft Arm] 146/84 H 142/96 H Pulse Oximetry 95 94 10/23/21 03:00 Temperature 98.0 F Pulse Rate Pulse Rate [Left P ulse Oximeter] 86 Respiratory Rate 20 Blood Pressure [Le ft Arm] 132/82 Pulse Oximetry 97 Documenting provider has reviewed patient's vital signs: yes Labs Labs: Laboratory Results - last 24 hr 10/22/21 10/23/21 10/23/21 09:14 06:26 06:26 WBC 5.84 RBC 3.46 L Hgb 11.3 L Hct 32.5 L MCV 94 MCH 33 MCHC 35 RDW Coeff of Ambrosio 13.4 Plt Count 125 L Neut % (Auto) 56.8 Lymph % (Auto) 24.0 [place] % (Auto) 17.0 H Eos % (Auto) 1.5 Baso % (Auto) 0.5 Neut # (Auto) 3.32 Lymph # (Auto) 1.40 [place] # (Auto) 1.00 H Eos # (Auto) 0.09 Baso # (Auto) 0.03 Abs Immat Gran (auto) 0.01 Sodium 137 Potassium 3.9 Chloride 102 Carbon Dioxide 28 BUN 26 Creatinine 1.3 Estimated Creat Clear 45.31 Glucose 154 H Calcium 8.9 Troponin I < 0.01 L
--- NOTE | 2021-10-23 13:03 | CRLHL7_ITS ---
For Patients: As a result of the Cures Act, medical imaging exams and procedure reports are released immediately into your electronic medical record. You may view this report before your referring provider. If you have questions, please contact your health care provider. Indication: INTRA OP ORIF EXAM Technique: Two fluoroscopic images of the right ankle. Fluoroscopic time 2 minutes 26.4 seconds. IMPRESSION: Fluoroscopic guidance for ORIF distal fibular fracture. Dictated by Mekhi Carrillo MD @ 10/24/2021 8:29:02 AM (Electronically Signed)
[2021-10-23] MEDS: fentaNYL 100 MCG/2 ML inj IVP (13:05)
[2021-10-23] MEDS: MIDAZOLAM HCL 1 MG/ML inj IVP (13:05)
--- NOTE | 2021-10-23 13:32 | SUR.PREOP ---
TIME?OUT:?1305, right knee PT/RN/MDA?VERIFICATION?OF?SURGICAL?SITE,?PROCEDURE,?AND?CONSENT OBTAINED?PRIOR?TO?INVASIVE?PROCEDURE.
--- NOTE | 2021-10-23 14:41 | PM.ORCN ---
History of Present Illness HPI Consult date: 10/23/21 Requesting physician: Ray Ramirez Consult reason: fracture Chief complaint: Fall Narrative: Aditya is a 80-year-old gentleman who fell sustaining a right ankle fracture. He has never injured this ankle or had surgery previously. He does have diabetes. [facility] Surgical History History of coronary artery bypass graft Social History (Updated 10/22/21 @ 00:16 by Elroy Caceres MD) Highest level of school completed/degree received: high school graduate Smoking Status: Former smoker What tobacco products do you use: cigarettes Smoking quit date/years: >15 years ago Do you use any of these nicotine containing products: None Second hand tobacco smoke exposure: No How often do you have a drink containing alcohol: 4 or more times a week Alcohol type: hard liquor How many standard drinks containing alcohol do you have on a typical day: 3 or 4 How often do you have six or more drinks on one occasion: Never AUDIT-C Alcohol total score: 5 Non-prescribed substance use: denies use Caffeine: No service: No Meds Home Medications and Allergies Home Medications Medication Instructions Recorded Confirmed Type apixaban 5 mg tablet (Eliquis) 5 mg PO BID 10/21/21 10/22/21 History carvedilol 6.25 mg tablet 6.25 mg PO BID 10/21/21 10/22/21 History ferrous gluconate 324 mg (38 mg 324 mg PO DAILY 10/21/21 10/22/21 History iron) tablet finasteride 5 mg tablet 5 mg PO DAILY 10/21/21 10/22/21 History furosemide 20 mg tablet 40 mg PO BID 10/21/21 10/22/21 History losartan 25 mg tablet 25 mg PO DAILY 10/21/21 10/22/21 History metformin 500 mg tablet,extended 500 mg PO BIDWM 10/21/21 10/22/21 History release 24 hr omeprazole 20 mg capsule,delayed 20 mg PO DAILY 10/21/21 10/22/21 History release potassium chloride 20 mEq 20 meq PO DAILY 10/21/21 10/22/21 History tablet,extended release(part/cryst) (Klor-Con M) rosuvastatin 20 mg tablet 20 mg PO DAILY 10/21/21 10/22/21 History tamsulosin 0.4 mg capsule 0.8 mg PO DAILY 10/21/21 10/22/21 History Allergies Allergy/AdvReac Type Severity Reaction Status Date / Time Penicillins Allergy Unknown Verified 10/21/21 21:46 Ortho Exam Narrative Exam Narrative: The patient is alert and oriented x3, in no acute distress, they are able to converse in a normal speaking voice without obvious hearing loss and with nonlabored breathing. The patient is examined supine in the hospital bed. There is a well applied short leg Ramiro [place] splint. CMS is normal. Const Vital Signs, click to edit/add: Vital Signs - 24 hr 10/22/21 15:32 10/22/21 15:43 10/22/21 21:00 Temperature 97.7 F 98.2 F Pulse Rate 83 Pulse Rate [Left Pulse Oximeter] 78 84 Respiratory Rate 18 20 Blood Pressure Blood Pressure [Left Arm] 135/80 146/84 H Pulse Oximetry 95 95 10/22/21 23:00 10/22/21 23:43 10/23/21 03:00 Temperature 97.8 F 98.0 F Pulse Rate 79 Pulse Rate [Left Pulse Oximeter] 86 86 Respiratory Rate 18 20 Blood Pressure Blood Pressure [Left Arm] 142/96 H 132/82 Pulse Oximetry 94 97 10/23/21 07:00 10/23/21 13:10 10/23/21 13:20 Temperature 98.7 F 98.7 F Pulse Rate 84 86 82 Pulse Rate [Left Pulse Oximeter] 86 Respiratory Rate 20 20 20 Blood Pressure 145/87 H 129/81 Blood Pressure [Left Arm] 148/85 H Pulse Oximetry 94 97 97 10/23/21 13:30 Temperature Pulse Rate 84 Pulse Rate [Left Pulse Oximeter] Respiratory Rate 20 Blood Pressure 128/63 Blood Pressure [Left Arm] Pulse Oximetry Results Labs Labs: Laboratory Results - last 48 hr 10/21/21 10/21/21 10/21/21 21:48 21:58 21:58 WBC 5.43 RBC 3.73 L Hgb 12.1 L Hct 35.5 L MCV 95 MCH 32 MCHC 34 RDW Coeff of Ambrosio 13.4 Plt Count 153 Neut % (Auto) 59.3 Lymph % (Auto) 27.4 [place] % (Auto) 10.9 Eos % (Auto) 1.3 Baso % (Auto) 0.7 Neut # (Auto) 3.22 Lymph # (Auto) 1.49 [place] # (Auto) 0.60 Eos # (Auto) 0.07 Baso # (Auto) 0.04 Abs Immat Gran (auto) 0.02 Sodium 139 Potassium 4.2 Chloride 104 Carbon Dioxide 21 BUN 24 Creatinine 1.9 H Estimated Creat Clear 31.00 Glucose 148 H Calcium 9.3 Magnesium Total Bilirubin AST ALT Alkaline Phosphatase Troponin I Total Protein Albumin Urine Color Urine Appearance Urine pH Ur Specific [place] Urine Protein Urine Glucose (UA) Urine Ketones Urine Blood Urine Nitrite Urine Bilirubin Urine Urobilinogen Ur Leukocyte Esterase Urine RBC Urine WBC Ur Squamous Epith Cells Urine Bacteria Coarse Granular Casts Ethyl Alcohol SARS-CoV-2 (PCR) Influenza Type A (PCR) Influenza Type B (PCR) POC Glucose POC Troponin I 0.01 10/21/21 10/21/21 10/21/21 21:58 23:39 23:50 WBC RBC Hgb Hct MCV MCH MCHC RDW Coeff of Ambrosio Plt Count Neut % (Auto) Lymph % (Auto) [place] % (Auto) Eos % (Auto) Baso % (Auto) Neut # (Auto) Lymph # (Auto) [place] # (Auto) Eos # (Auto) Baso # (Auto) Abs Immat Gran (auto) Sodium Potassium Chloride Carbon Dioxide BUN Creatinine Estimated Creat Clear Glucose Calcium Magnesium Total Bilirubin AST ALT Alkaline Phosphatase Troponin I Total Protein Albumin Urine Color Yellow Urine Appearance Clear Urine pH 5.5 Ur Specific [place] 1.020 Urine Protein Negative Urine Glucose (UA) Negative Urine Ketones Negative Urine Blood Negative Urine Nitrite Negative Urine Bilirubin Negative Urine Urobilinogen 0.2 Ur Leukocyte Esterase Negative Urine RBC 0-2 Urine WBC 5-10 A Ur Squamous Epith Cells Few Urine Bacteria None Coarse Granular Casts Moderate A Ethyl Alcohol 0.11 H SARS-CoV-2 (PCR) Negative SARS-CoV-2 Influenza Type A (PCR) Negative PCR FLU A Influenza Type B (PCR) Negative PCR FLU B POC Glucose POC Troponin I 10/22/21 10/22/21 10/22/21 08:15 09:14 09:14 WBC 4.90 RBC 3.60 L Hgb 11.7 L Hct 33.4 L MCV 93 MCH 33 MCHC 35 RDW Coeff of Ambrosio 13.3 Plt Count 133 L Neut % (Auto) 57.6 Lymph % (Auto) 24.9 [place] % (Auto) 15.3 H Eos % (Auto) 1.4 Baso % (Auto) 0.6 Neut # (Auto) 2.82 Lymph # (Auto) 1.22 [place] # (Auto) 0.70 Eos # (Auto) 0.07 Baso # (Auto) 0.03 Abs Immat Gran (auto) 0.01 Sodium 136 Potassium 4.3 Chloride 104 Carbon Dioxide 25 BUN 26 Creatinine 1.4 Estimated Creat Clear 42.07 Glucose 171 H Calcium 9.3 Magnesium 1.5 Total Bilirubin 1.2 AST 34 ALT 38 Alkaline Phosphatase 119 Troponin I < 0.01 L Total Protein 6.7 Albumin 4.2 Urine Color Urine Appearance Urine pH Ur Specific [place] Urine Protein Urine Glucose (UA) Urine Ketones Urine Blood Urine Nitrite Urine Bilirubin Urine Urobilinogen Ur Leukocyte Esterase Urine RBC Urine WBC Ur Squamous Epith Cells Urine Bacteria Coarse Granular Casts Ethyl Alcohol SARS-CoV-2 (PCR) Influenza Type A (PCR) Influenza Type B (PCR) POC Glucose 136 H POC Troponin I 10/23/21 10/23/21 06:26 06:26 WBC 5.84 RBC 3.46 L Hgb 11.3 L Hct 32.5 L MCV 94 MCH 33 MCHC 35 RDW Coeff of Ambrosio 13.4 Plt Count 125 L Neut % (Auto) 56.8 Lymph % (Auto) 24.0 [place] % (Auto) 17.0 H Eos % (Auto) 1.5 Baso % (Auto) 0.5 Neut # (Auto) 3.32 Lymph # (Auto) 1.40 [place] # (Auto) 1.00 H Eos # (Auto) 0.09 Baso # (Auto) 0.03 Abs Immat Gran (auto) 0.01 Sodium 137 Potassium 3.9 Chloride 102 Carbon Dioxide 28 BUN 26 Creatinine 1.3 Estimated Creat Clear 45.31 Glucose 154 H Calcium 8.9 Magnesium Total Bilirubin AST ALT Alkaline Phosphatase Troponin I Total Protein Albumin Urine Color Urine Appearance Urine pH Ur Specific [place] Urine Protein Urine Glucose (UA) Urine Ketones Urine Blood Urine Nitrite Urine Bilirubin Urine Urobilinogen Ur Leukocyte Esterase Urine RBC Urine WBC Ur Squamous Epith Cells Urine Bacteria Coarse Granular Casts Ethyl Alcohol SARS-CoV-2 (PCR) Influenza Type A (PCR) Influenza Type B (PCR) POC Glucose POC Troponin I Diagnostic results Additional Comments: Three views of the right ankle show a Daniel B fibular fracture with widening through the medial mortise. Assessment and Plan Assessment and plan (1) Closed fracture of right distal fibula: Problem comment: Unstable ankle fracture. Status: Acute Total time spent: Total time spent is greater than 50% in coordination of care (as documented) at patient's floor/unit and/or counseling patient: (2) Syncope: Problem comment: Reassuring evaluations so far. No recurrent symptoms. Status: Acute Total time spent: Total time spent is greater than 50% in coordination of care (as documented) at patient's floor/unit and/or counseling patient: (3) Alcohol abuse: Problem comment: Patient reports that he does not drink every day. Status: Acute Total time spent: Total time spent is greater than 50% in coordination of care (as documented) at patient's floor/unit and/or counseling patient: (4) Atrial fibrillation: Problem comment: Continue rate control. Status: Acute Total time spent: Total time spent is greater than 50% in coordination of care (as documented) at patient's floor/unit and/or counseling patient: (5) Acute kidney injury: Problem comment: creatinine 1.9 on admission. Baseline is 1.4. Back to baseline today Status: Acute Total time spent: Total time spent is greater than 50% in coordination of care (as documented) at patient's floor/unit and/or counseling patient: (6) Anticoagulant long-term use: Problem comment: hold anticoagulation pending surgical decision Status: Acute Total time spent: Total time spent is greater than 50% in coordination of care (as documented) at patient's floor/unit and/or counseling patient: (7) Coronary artery disease: Problem comment: currently asymptomatic Status: Acute Total time spent: Total time spent is greater than 50% in coordination of care (as documented) at patient's floor/unit and/or counseling patient: (8) Diabetes mellitus: Problem comment: continue to monitor on normal blood pressure medicines and sliding scale insulin Status: Acute Total time spent: Total time spent is greater than 50% in coordination of care (as documented) at patient's floor/unit and/or counseling patient: Plan Assessment: Unstable Daniel B right ankle fracture I told the patient that his injury is best treated with ORIF. The risks, benefits and expected outcomes were discussed in detail. These included but were not limited to: Infection, bleeding, injury to blood vessel or nerve, venous thromboembolism. All questions were answered to their satisfaction. He has been medically cleared for surgery. Therefore, we will plan to take him to the operating room now.
--- NOTE | 2021-10-23 14:45 | SUR.OPER ---
PATIENT QUESTIONS PREOP: Patient questions answered satisfactorily preoperatively. PT. BROUGHT OT OR #2 BY CART FROM BLOCK ROOM. POSITIONING SUPINE W/ARMS OUT: Patient positioned supine on OR bed. Perioperative team supported arms bilaterally on arm boards. Final approval of positioning by surgeon.
--- NOTE | 2021-10-23 14:49 | PM.ORPRC ---
Procedure Note Date of procedure: 10/23/21 Procedure: SURGEON: Hal Willard MD BUSINESS SERVICES INTERN: EDUARDA Way PREOPERATIVE DIAGNOSIS: Right ankle Daniel B bimalleolar fracture POSTOPERATIVE DIAGNOSIS: Right ankle Daniel B bimalleolar fracture NAME OF OPERATION: ORIF ANESTHESIA: Spinal plus popliteal block ESTIMATED BLOOD LOSS: 0 mL COMPLICATIONS: None SPECIMENS: None DRAINS: None PREOPERATIVE ANTIBIOTICS: Ancef 2 g INDICATIONS: The patient is a 80-year-old male who sustained a right ankle fracture. ORIF was recommended. The risks, benefits and expected outcomes were discussed in detail. These included but were not limited to: Infection, bleeding, injury to blood vessel or nerve, venous thromboembolism. All questions were answered to their satisfaction. Use of an warehouse assistant was necessary throughout the case for patient positioning and safety, soft tissue retraction and closure. PROCEDURE: A popliteal block was placed by anesthesia. Spinal anesthesia was administered. The lower extremity was prepped and draped in the usual sterile fashion. A percutaneous incision was made at the fracture site 1 anteriorly and 1 posteriorly. The fracture was reduced and a Daniel reduction clamp was used to hold it anatomically. A guide pin was placed in the center of the distal fragment of the fibula, percutaneously. Its placement was confirmed with the image intensifier in multiple views. A stab incision was made around the guide pin. The opening Reamer was used. The guide pin was removed. The reduction finger was placed in the distal fragment. The distal fragment was held reduced. The reduction finger was taken across the fracture site. The longer, flexible guide pin was placed across the fracture, engaging the canal of the proximal fragment. The opening reamer was placed again, past the fracture site. The 3.2 mm reamer was used in the proximal fragment. The canal was large, therefore we used the 4.0 mm Reamer in the proximal fragment. We placed the Arthrex 3.8 mm x 130 mm intramedullary nail. The talons were deployed. We placed 2 screws in the distal fragment. The kiln door repairer and screw guide were removed, the end cap was placed. This provides an anatomic reduction of the fibula with excellent fixation. Implants were imaged in the AP, mortise and lateral views and were felt to be well placed with an excellent reduction. The talus is nicely reduced under the tibial plafond. The wounds were irrigated with normal saline. The warehouse assistant closed the skin with a 4-0 Monocryl in a subcuticular fashion. Glue was used to seal the skin. The warehouse assistant placed a dry dressing and short leg Ramiro [place] splint. Sponge and needle counts were correct x 2. The patient tolerated the procedure well. There were no apparent complications. They were carefully transferred to the hospital bed and taken to the postanesthesia care unit in satisfactory condition. PLAN: The patient will be discharged to home, when medically appropriate. They will remain strict nonweightbearing on the lower extremity. They will continue to work on ice and elevation. They will follow up in the office in 2 weeks for a wound check and three views of the ankle out of the splint, prior to being seen, in preparation for a CAM walker, early weight-bearing and physical therapy.
--- NOTE | 2021-10-23 14:54 | SUR.OPER ---
NS 1000 POUR IRRIGATION OF SURGICAL INCISION AT 14:39. 900cc USED.
--- NOTE | 2021-10-23 15:07 | W.PM.NB ---
Nerve Block Nerve Block Date Seen: 10/23/21 Type of block requested by surgeon for post-operative analgesia: popliteal Side: right Time out performed: Yes Verification of patient name: Yes Verification of date of : Yes Site marking: site marked Name of person performing procedure: Denilson Mar, if any: Grover Continuous monitoring Was continuous monitoring of O2 sat, B/P, emt paramedic, recorded every 15 minutes?: Yes Procedure Checklist: sterile prep, needles and gloves Ultrasound guided. Images saved: Yes Medications given in 5ml increments after negative aspiration: Ropivicaine %: 0.5 mL: 30 Needle gauge: 22 Patient tolerated procedure well: Yes Additional comments: Needle noted adjacent to nerve
--- NOTE | 2021-10-23 15:08 | W.PM.NB ---
Nerve Block Nerve Block Date Seen: 10/23/21 Type of block requested by surgeon for post-operative analgesia: femoral Side: right Time out performed: Yes Verification of patient name: Yes Verification of date of : Yes Site marking: site marked Name of person performing procedure: Denilson Mar, if any: Grover Continuous monitoring Was continuous monitoring of O2 sat, B/P, quality assurance monitor final, recorded every 15 minutes?: Yes Procedure Checklist: sterile prep, needles and gloves Ultrasound guided. Images saved: Yes Medications given in 5ml increments after negative aspiration: Ropivicaine %: 0.5 mL: 20 Needle gauge: 22 Decadron (mg): 10 Precedex (mcg): 25 Patient tolerated procedure well: Yes Additional comments: Needle noted adjacent to nerve
--- NOTE | 2021-10-23 15:14 | W.ANESCHARGE ---
Anesthesia Charges Start Date/Time Anesthesia Start Date: 10/23/21 Anesthesia Start Time: 13:33 Stop Date/Time Anesthesia Stop Date: 10/23/21 Anesthesia Stop Time: 15:05 Summary Emergency: No Extremes of Age: Over 72-CPT [id number]
[2021-10-23] MEDS: LACTATED RINGERS 1000 ML 1,000 ML 100 ML IV (17:06)
--- NOTE | 2021-10-23 19:12 | NUTR.NU ---
Shift note 07-19: pt pleasant and cooperative. NWB to RLE. BG 166 & 148. No insulin given. Metformin and Furosemide were held prior to surgery. Pt to floor at 1505. BP now at pts baseline pre op. No c/o pain or nausea. Pt declined ordering dinner, stated he would have a snack later in the evening. RLE wrapped, no drainage noted. RLE elevated. ?
[2021-10-23] MEDS: METFORMIN ER 500 MG PO (21:21)
[2021-10-23] MEDS: SENNOSIDES 1 TAB TABLET 2 TAB PO (21:21)
--- NOTE | 2021-10-23 23:32 | PC.NURSE ---
Pt pleasant and cooperative. Frequent post op vitals complete. Pt cont to rate pain 0/10. He is able to minimally move his toes and can feel me touching his foot but says it feels numb. He is voiding. He tolerated some pudding but says he is not hungry and doesn't want anything else. Leg elevated on a couple of pillows. Large dressing is CDI>
[2021-10-24] MEDS: LACTATED RINGERS 1000 ML 1,000 ML 100 ML IV ×2 (02:36→12:11)
[2021-10-24 03:00] VITALS: BP 156/88; PULSE 93; RESP 18; TEMP 37; O2SAT 95
[2021-10-24] MEDS: OMEPRAZOLE 20 MG CAPSULE DR PO (06:33)
--- NOTE | 2021-10-24 07:29 | PC.NURSE ---
END OF SHIFT NOTE: PT PLEASANT AND COOPERATIVE. PT DENIES CHEST PAIN, SOB, N/V. PT IS NWB TO RLE WITH WALKER AND ASSIST OF 1. PT RATES RIGHT ANKLE PAIN 0/10. VSS AND WNL ON RA; AFEBRILE. USES CALL LIGHT APPROPRIATELY. PT SLEPT WELL NOC.
[2021-10-24] MEDS: METFORMIN ER 500 MG PO (08:35)
[2021-10-24] MEDS: APIXABAN 5 MG TABLET PO (08:35)
[2021-10-24] MEDS: carvediloL 6.25 MG TABLET PO (08:35)
[2021-10-24] MEDS: ROSUVASTATIN CALCIUM 10 MG TABLET 20 MG PO (08:35)
[2021-10-24] MEDS: FINASTERIDE 5 MG TABLET PO (08:35)
[2021-10-24] MEDS: POTASSIUM CHLORIDE 10 MEQ CAPSULE ER 20 MEQ PO (08:35)
[2021-10-24] MEDS: FUROSEMIDE 40 MG TABLET PO (08:36)
[2021-10-24] MEDS: TAMSULOSIN HCL 0.4 MG CAPSULE 0.8 MG PO (08:36)
[2021-10-24] MEDS: FERROUS SULFATE 325 MG TABLET PO (08:36)
[2021-10-24] MEDS: SENNOSIDES 1 TAB TABLET 2 TAB PO (08:36)
[2021-10-24] MEDS: LOSARTAN POTASSIUM 50 MG TABLET 25 MG PO (08:38)
[2021-10-24 09:00] VITALS: BP 123/59; PULSE 98; RESP 16; TEMP 37; O2SAT 95
--- NOTE | 2021-10-24 10:44 | PM.ORPN ---
Subjective Subjective Time Seen by Provider: 08:00 Date Seen: 10/24/21 Principal diagnosis: Status post right ankle ORIF Interval history: Aditya is comfortable this morning in his short-leg splint. He will be discharging either to home or a senior living facility. Ortho Exam Narrative Exam Narrative: Alert and oriented x3. Patient is in no acute distress. Converses without labored breathing. Hearing is grossly intact. Nonweightbearing right lower extremity. Examination of the right lower extremity shows his toes are warm. Capillary refill less than 2 seconds. He is able to extend and flex the toes. Splint is intact right lower extremity. Sensation is intact right toes. Const Vital Signs, click to edit/add: Vital Signs - 24 hr 10/23/21 13:10 10/23/21 13:20 10/23/21 13:30 Temperature 98.7 F Pulse Rate 86 82 84 Pulse Rate [Left Pulse Oximeter] Respiratory Rate 20 20 20 Blood Pressure 145/87 H 129/81 128/63 Blood Pressure [Left Arm] Pulse Oximetry 97 97 10/23/21 15:15 10/23/21 15:30 10/23/21 15:45 Temperature Pulse Rate Pulse Rate [Left Pulse Oximeter] Respiratory Rate 20 18 18 Blood Pressure Blood Pressure [Left Arm] 108/72 117/64 140/78 H Pulse Oximetry 95 99 98 10/23/21 16:00 10/23/21 16:30 10/23/21 17:00 Temperature 98 F 98.5 F Pulse Rate 70 Pulse Rate [Left Pulse Oximeter] Respiratory Rate 18 18 18 Blood Pressure Blood Pressure [Left Arm] 129/63 134/74 143/81 H Pulse Oximetry 99 99 96 10/23/21 18:00 10/23/21 19:00 10/23/21 20:00 Temperature 98.3 F 98 F Pulse Rate Pulse Rate [Left Pulse Oximeter] 76 84 Respiratory Rate 16 18 18 Blood Pressure Blood Pressure [Left Arm] 142/75 H 142/75 H 163/88 H Pulse Oximetry 99 98 98 10/23/21 23:00 10/24/21 03:00 10/24/21 09:00 Temperature 98.3 F 98.6 F 98.6 F Pulse Rate Pulse Rate [Left Pulse Oximeter] 79 93 98 Respiratory Rate 14 18 16 Blood Pressure Blood Pressure [Left Arm] 142/74 H 156/88 H 123/59 L Pulse Oximetry 96 95 95 Documenting provider has reviewed patient's vital signs: yes Assessment and Plan Assessment and plan (1) Closed fracture of right distal fibula: Problem details: Unstable ankle fracture. Status: Acute (2) Syncope: Problem details: Reassuring evaluations so far. No recurrent symptoms. Status: Acute (3) Alcohol abuse: Problem details: Patient reports that he does not drink every day. Status: Acute (4) Atrial fibrillation: Problem details: Continue rate control. Status: Acute (5) Acute kidney injury: Problem details: creatinine 1.9 on admission. Baseline is 1.4. Back to baseline today Status: Acute (6) Anticoagulant long-term use: Problem details: hold anticoagulation pending surgical decision Status: Acute (7) Coronary artery disease: Problem details: currently asymptomatic Status: Acute (8) Diabetes mellitus: Problem details: continue to monitor on normal blood pressure medicines and sliding scale insulin Status: Acute (9) Status post ORIF of fracture of ankle: Problem details: Date of surgery 10/23/2021. Right. Status: Acute Assessment and Plan: Aditya will discharge either to home or to a senior living facility. He will be nonweightbearing on the right lower extremity for 2 weeks. At that time he will return to Orthopedics. I have asked him to bring his Cam walker with him. X-rays will be taken at that time. Oxycodone and Tylenol for pain. He will ice and elevate as needed right lower extremity. He Will call Orthopedics if he has any questions or concerns.
[2021-10-24 11:00] VITALS: BP 126/66; PULSE 94; RESP 16; TEMP 36.6; O2SAT 96
[2021-10-24 11:32] LABS: Basophils Absolute Auto 0.02 K/uL (0.00-0.30); Basophils Percent Auto 0.4 % (0.0-3.0); Eosinophils Absolute Auto 0.04 K/uL (0.00-0.50); Eosinophils Percent Auto 0.8 % (0.0-7.0); Hematocrit 33.4 % (37.0-53.0); Hemoglobin* 11.4 gm/dL (13.5-17.5); Immature Granulocytes Abs Auto 0.01 K/uL (0.00-0.30); Mean Corpuscular HGB Conc 34 gm/dL (32-36); Mean Corpuscular Hemoglobin 32 pg (26-34); Mean Corpuscular Volume 95 fL (80-100); Monocytes Percent Auto 14.8 % (0.0-11.0); Neutrophils Absolute Auto 3.64 K/uL (1.7-7.0); Neutrophils Percent Auto 69.8 % (42.0-72.0); Platelet Count* 131 K/uL (140-440); RDW Coefficient of Variation % 13.4 % (11.5-15.5); Red Blood Count 3.53 m/uL (4.30-5.90); White Blood Count* 5.21 K/uL (4.50-11.00)
[2021-10-24 11:34] LABS: Slide Review Reflex No
--- NOTE | 2021-10-24 13:40 | PC.NURSE ---
Discharge: Patient pleasant and cooperative. Up with one assist, walker and gait belt. NWB in right leg. IV removed with catheter intact. Patient voiding well, had been using urinal or BSC, continent. Denies pain, denies SOB or chest pain as well. BP soft this morning with therapy and some lightheadedness, this has since resolved, BP back to baseline, denies dizziness with ambulation at time of discharge. Vitals stable and WNL. Discharge instructions given, reviewed follow ups and new orders, questions answered as needed. Patient discharged from unit @ 1325 via wheelchair, met at front entrance, discharged to own home.
--- NOTE | 2021-10-24 13:46 | P.DS_ITS ---
DS: Providers Provider Date Seen: 10/24/21 Date of admission: 10/23/21 09:13 Primary care physician: Mercedes Anthony MD Admitting Clinician: Elroy Caceres MD Consults: Attending Physician on discharge: Elroy Caceres MD Date of Discharge: 10/24/21 DS: Diagnosis Discharge Diagnosis (1) Closed fracture of right distal fibula: Status: Acute Problem details: Unstable ankle fracture. Underwent ORIF with Dr. Willard yesterday. (2) Syncope: Status: Acute Problem details: Reassuring evaluations so far. No recurrent symptoms. Did have symptomatic low blood pressure this morning. Because of this I discontinued his losartan pending outpatient followup. (3) Alcohol abuse: Status: Acute Problem details: Patient reports that he does not drink every day. No problems with alcohol withdrawal during this hospital stay (4) Atrial fibrillation: Status: Acute Problem details: Continue rate control and anticoagulation. (5) Acute kidney injury: Status: Acute Problem details: creatinine 1.9 on admission. Baseline is 1.4. Back to baseline today (6) Anticoagulant long-term use: Status: Acute Problem details: Apixaban was held for 2 days preop and now restarted (7) Coronary artery disease: Status: Acute Problem details: currently asymptomatic (8) Diabetes mellitus: Status: Acute Problem details: Resume home blood sugar management (9) Status post ORIF of fracture of ankle: Status: Acute Problem details: Date of surgery 10/23/2021. Right. DS: Summary Hospital Course Hospital Course: 80-year-old male admitted to the hospital for evaluation of a presumed syncopal episode and right ankle injury. He was found to have an unstable right ankle fracture. Patient was unable to get around without putting weight on his right ankle and so he was taking to operating room by Dr. Willard for ORIF of his ankle fracture. He is on apixaban in the apixaban was held for approximately 2 days prior to the surgery. He did not have significant complications related to this. Postoperatively he has been doing well. Status at Discharge Functional status at discharge: uses cane/walker (Walker for bed chair transfer) Overall status at discharge: patient is back to baseline Time Spent with Patient Time attestation: Total time spent providing and/or coordinating discharge services: 40 minutes Time spent: Greater than 30 minutes Exam Narrative: Exam Narrative: He is alert appears in no distress. Systolic Blood pressure is now improved at 117 from 83 this morning when he felt lightheaded. He reports feeling fine. Respirations are clear to auscultation. Cardiovascular: S1, S2, somewhat irregular rhythm. No tachycardia or bradycardia. He has intact sensation and capillary refill in his feet. Const: Vital Signs, click to edit/add: Vital Signs - 24 hr 10/23/21 15:15 10/23/21 15:30 10/23/21 15:45 Temperature Pulse Rate Pulse Rate [Left P ulse Oximeter] Respiratory Rate 20 18 18 Blood Pressure [Le ft Arm] 108/72 117/64 140/78 H Pulse Oximetry 95 99 98 10/23/21 16:00 10/23/21 16:30 10/23/21 17:00 Temperature 98 F 98.5 F Pulse Rate 70 Pulse Rate [Left P ulse Oximeter] Respiratory Rate 18 18 18 Blood Pressure [Le ft Arm] 129/63 134/74 143/81 H Pulse Oximetry 99 99 96 10/23/21 18:00 10/23/21 19:00 10/23/21 20:00 Temperature 98.3 F 98 F Pulse Rate Pulse Rate [Left P ulse Oximeter] 76 84 Respiratory Rate 16 18 18 Blood Pressure [Le ft Arm] 142/75 H 142/75 H 163/88 H Pulse Oximetry 99 98 98 10/23/21 23:00 10/24/21 03:00 10/24/21 09:00 Temperature 98.3 F 98.6 F 98.6 F Pulse Rate Pulse Rate [Left P ulse Oximeter] 79 93 98 Respiratory Rate 14 18 16 Blood Pressure [Le ft Arm] 142/74 H 156/88 H 123/59 L Pulse Oximetry 96 95 95 10/24/21 11:00 Temperature 97.8 F Pulse Rate Pulse Rate [Left P ulse Oximeter] 94 Respiratory Rate 16 Blood Pressure [Le ft Arm] 126/66 Pulse Oximetry 96 Documenting provider has reviewed patient's vital signs: yes DS: Data Data Completed and Pending Labs on day of discharge: Labs from last 24 hours 10/24/21 11:26 WBC 5.21 RBC 3.53 L Hgb 11.4 L Hct 33.4 L MCV 95 MCH 32 MCHC 34 RDW Coeff of Ambrosio 13.4 Plt Count 131 L Neut % (Auto) 69.8 Lymph % (Auto) 14.0 L [place] % (Auto) 14.8 H Eos % (Auto) 0.8 Baso % (Auto) 0.4 Neut # (Auto) 3.64 Lymph # (Auto) 0.70 L [place] # (Auto) 0.80 Eos # (Auto) 0.04 Baso # (Auto) 0.02 Abs Immat Gran (auto) 0.01 Discharge Plan Discharge Disposition: Home, Self-Care Date of Admission: 10/23/21 09:13 Attending Provider on Discharge: Ray Ramirez Consulting Providers: Hal Willard Primary Care Provider: Mercedes Anthony Condition: Improved Anticipated Discharge Date/Time: 10/24/21 15:26 Discharge Medications: New oxycodone 5 mg Tablet 2.5 - 5 mg PO Q4-6H PRN (Reason: Pain) Qty: 40 0RF Rx Instructions: minimize and discontinue as soon as possible sennosides [Senna Lax] 8.6 mg Tablet 2 tab PO BID PRNQty: 100 0RF Continued carvedilol 6.25 mg tablet 6.25 mg PO BID 0RF Label Comments: TAKE 1 TABLET BY MOUTH 2 TIMES DAILY WITH MEALS. potassium chloride [Klor-Con M20] 20 mEq tablet,ER particles/crystals 20 meq PO DAILY 0RF Label Comments: TAKE 1 TABLET (20 MEQ) BY MOUTH ONCE DAILY WITH A MEAL. tamsulosin 0.4 mg capsule 0.8 mg PO DAILY 0RF Label Comments: TAKE 2 CAPS BY MOUTH DAILY omeprazole 20 mg capsule,delayed release(DR/EC) 20 mg PO DAILY 0RF Label Comments: TAKE 1 CAPSULE BY MOUTH DAILY. furosemide 20 mg tablet 40 mg PO BID 0RF Label Comments: TAKE 2 TABLETS BY MOUTH TWICE A DAY metformin 500 mg tablet extended release 24 hr 500 mg PO BIDWM 0RF Label Comments: TAKE 1 TABLET BY MOUTH TWICE DAILY. NEEDS APPT finasteride 5 mg tablet 5 mg PO DAILY 0RF Label Comments: TAKE 1 TABLET BY MOUTH DAILY. rosuvastatin 20 mg tablet 20 mg PO DAILY 0RF Label Comments: TAKE 1 TABLET BY MOUTH EVERY DAY ferrous gluconate 324 mg (38 mg iron) tablet 324 mg PO DAILY 0RF Label Comments: TAKE 1 TABLET BY MOUTH DAILY Eliquis 5 mg tablet 5 mg PO BID 0RF Label Comments: TAKE 1 TABLET BY MOUTH TWICE A DAY probenecid-colchicine 500-0.5 mg tablet 1 tab PO BID PRN (Reason: gout) Qty: 30 1RF Held losartan 25 mg tablet 25 mg PO DAILY 0RF Hold Instructions: Hold until follow-up with Dr. Anthony Label Comments: TAKE 1 TABLET BY MOUTH DAILY. Discharge Orders: Discharge Order (Routine); Ordered 10/24/21 Ordered By: Ray Ramirez Patient Education: Oxycodone, Rapid Release (By mouth), Senna (By mouth), Crutch Instructions (DC), Deep Sedation (DC), Peripheral Nerve Block (DC), ORIF of an Ankle Fracture (DC) Activity Detail: non weightbearing on Rt lower extremity for two weeks. Return to Ortho in [address] a CAM walker. bring your walking boot to appt. Elevate and ice prn. keep splint clean and dry. Discharge Diet: Diabetic Follow Up Appointments: Hal Willard MD [Staff Physician] - 11/05/21 9:10 am (Appointment at the [facility]--Orthopedic Clinic) Mercedes Anthony MD [Primary Care Provider] - 11/03/21 1:30 pm Forms: [facility] [employer] Info Instructions
== END 2021-10-24 13:25 | disposition home or self-care (01) | DRG 493 ==
LOC: ED 23:49 → MEDSURG 10-22 00:48
PROVIDERS: Family Medicine; Orthopaedic Surgery; Admitting Provider Family Medicine; Emergency Provider Family Medicine; PCP Family Medicine; Visit Provider Family Medicine
PROC: 0QSJ04Z Reposition Right Fibula with Internal Fixation Device, Open Approach (ICD-10-PCS; principal; 2021-10-23 15:00)
DX: S82.841A Displaced bimalleolar fracture of right lower leg, initial encounter for closed fracture (principal); N17.9 Acute kidney failure, unspecified; R55 Syncope and collapse; I48.91 Unspecified atrial fibrillation; Z79.01 Long term (current) use of anticoagulants; W19.XXXA Unspecified fall, initial encounter; Y92.002 Bathroom of unspecified non-institutional (private) residence as the place of occurrence of the external cause; E11.9 Type 2 diabetes mellitus without complications; Z79.4 Long term (current) use of insulin; I25.10 Atherosclerotic heart disease of native coronary artery without angina pectoris; F10.129 Alcohol abuse with intoxication, unspecified; Y90.5 Blood alcohol level of 100-119 mg/100 ml; K21.9 Gastro-esophageal reflux disease without esophagitis; M10.9 Gout, unspecified; N40.0 Benign prostatic hyperplasia without lower urinary tract symptoms; E78.5 Hyperlipidemia, unspecified; Z68.35 Body mass index [BMI] 35.0-35.9, adult
CPT/HCPCS: 01480; 01830; 36415; 64445; 64447; 70450; 72125; 73600; 73610; 76000; 76942; 80048; 80053; 81001; 82077; 82947; 83605; 83735; 84484; 85025; 87086; 87502; 87635; 93005; 97116; 97161; 97164; 97165; 97530; 97535; 99100; 99285; 99291; G0378; A9270; C1713; G0379; G0390; J2250; J2704; J2795; J3010; J7030; J7120

== ENCOUNTER 2021-12-17 11:45 | Outpatient (RCR) | payer MEDICARE, SELFPAY ==
--- NOTE | 2021-11-12 12:29 | PT.OPEX ---
PT [place] Outpatient Eval PT [facility] Outpatient Eval Start: 11/12/21 08:54 Freq: Status: Active Protocol: Document 11/12/21 08:55 ARR (Rec: 11/12/21 10:02 ARR [id number]) E-signed By Ana Montenegro DPT Physical Therapy Outpatient Evaluation Insurance Information Recert Due Date 02/10/22 Insurance Name Medicare B Insurance Information/Comments [employer] Medical Diagnosis [id number] - Other fracture of right lower leg, initial encounter for closed fracture Treating Diagnosis M25.671 right ankle stiffness M25.571 right ankle/foot pain Subjective Subjective Had a fainting episode and fell due to dehydration ? legs gave out. R ankle caldwell B bilmalleolar ORIF on 10/23/21, ~3 wks post op. On 11/05/21 pt progressed into CAM walker with progressive WBAT, tubigrip and PT referral placed at this time. Currently indep in ADL?s. Minimal pain currently. -Lives in split level home. Has hosp bed at home. Enter into the garage and lives on this main floor so no stairs to navigate. 8 steps upward to living/dining room. Then another 8 steps to bedroom and bathroom. -Has 2.5 acres of property to split wood and take care of. Mows 2 acres. Prior to fall wasn?t using AD, did have TKA scheduled for November on R knee that had to be cancelled. Bilat knees are bone on bone and equally as bad. Thinks may be rescheduled Apr 2022. Indep in all ADL?s and driving prior to fall. -Goals: get mobility back to take care of taking care of property. Mowing lawn. Drive. Do stairs. \ PMHx: DM type 2, HTN, heart failure with preserved EF, L ear hearing loss, a-fib, a-fib , acute kidney injury, closed fx of R distal fibula, CAD, 3 vessel coronary artery bypass 2 yrs ago - pt repots having had 2 surgeries b/c first one didn't work, on Elloquis for blood thinner. Lost big toe and 2nd toe on L 50 yrs ago. Objective Other/Pertinent Objective Palpation: absent sensation around ankle joint from medial to lateral maelloli and 3-4 inches distal and proximal to this area. Increased tissue hardness without pitting edema noted. Reduced skin/tissue mobility noted throughout. SLS (30 sec): not tested due to post op status Gait: amb with 4WW antalgic gait with CAM boot donned R LE . RANGE OF MOTION: LE ROM (R/L): -Ankle DF 10* PF (lacking DF) / 5 L -Ankle PF: 25* R / 40 L -Ankle Inversion 0 R / 25 L -Ankle eversion: 0 R / 10 L -Knee Ext: lacking 10-15* bilat -Great toe extension and lesser toe flexion/extension reduced on R STRENGTH: LE Strength (R/L) -Knee flexion and ext 5/5 bilat -Ankle inv and eversion 4+ on L. DF 5 on L. R LE not tested d/t post op status Functional Test Performed & Score LEFS 30/80 Assessment Assessment/Impression Pt is a 80 y/o male who presents with complaints of R ankle caldwell B bilmalleolar ORIF on 10/23/21, ~3 wks post op this date. Signs and symptoms consistent with post op status including significant right ankle tightness with decreased AROM in all planes and swelling/ increased tissue tightness also likely contributing. Pt is WBAT at this time with CAM boot donned. Initiated gently ROM this date with KTaping for swelling mgmt.. Patient is a good candidate for skilled therapy to target deficits described above. Skilled PT intervention is necessary for use of therapeutic exercise manual therapy, neuromuscular re-education, gait training, and therapeutic activity. Functional impairments include difficulty with: walking, stairs, ADLs, taking care of lawn. See appropriate sections of PT eval for complete list of goals and POC. D/C plan and criteria is for pt to achieve the goals as listed below or until max rehab potential is met. Pt was agreeable with plan of care and goals established. 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/symptoms 2) Pt will demonstrate improved ankle AROM at least 0 * DF for improved ambulation 3)Pt will ascend/descend at least 16 steps with HR and no device for ability to ascend stairs at home 4)Pt will demonstrate ability to complete 6 MWT without AD and no seated rest to show improved community mobility 5)Pt will demonstrate LEFS score >40/80 Coordination/Communication With Referral Source Treatment Plan/Direct Interventions Electrical Stimulation,Ice/ Cold/Vasopneumatic,Joint Mobilization,Manual Therapy, Neuromuscular Re-ed,Self-Care/ Home Management,Therapeutic Activities,Therapeutic Exercises,Ultrasound Frequency/Duration 1x/wk for total of 12 visits in 90 days Patient Will Be Discharged From Therapy Skills [facility],Independent w/ HEP Evaluation Billing Untimed Code Treatment Minutes 20 Complexity Moderate Certification Information Initial Certification Date 11/12/21 Ending Certification Date 02/10/22
== END 2022-01-28 13:36 | disposition home or self-care (01) ==
PROVIDERS: PCP Family Medicine; Visit Provider Orthopaedic Surgery
DX: S82.891D Other fracture of right lower leg, subsequent encounter for closed fracture with routine healing (principal); Z51.89 Encounter for other specified aftercare
CPT/HCPCS: 97110; 97112; 97140; 97162

== ENCOUNTER 2022-01-22 14:04 | Outpatient (CLI) | payer MEDICARE, SELFPAY ==
[2022-01-22 14:32] LABS: Hemoglobin* 12.3 gm/dL (13.5-17.5); Mean Corpuscular HGB Conc 34 gm/dL (32-36); Mean Corpuscular Hemoglobin 32 pg (26-34); Mean Corpuscular Volume 93 fL (80-100); Platelet Count* 136 K/uL (140-440); Red Blood Count 3.86 m/uL (4.30-5.90); White Blood Count* 4.91 K/uL (4.50-11.00)
[2022-01-22 14:34] LABS: Slide Review Reflex No
[2022-01-22 14:41] LABS: Hemoglobin A1C* 6.5 % (0-5.6)
[2022-01-22 21:27] LABS: Albumin* 4.5 g/dL (3.3-5.0); Chloride* 102 mmol/L (96-114); Potassium* 4.3 mmol/L (3.6-5.1); Sodium* 138 mmol/L (135-149)
[2022-01-22 21:30] LABS: Alanine Aminotransferase* 24 U/L (4-50); Alkaline Phosphatase* 128 U/L (40-150); Aspartate Amino Transferase* 30 U/L (12-35); Blood Urea Nitrogen* 22 mg/dL (7-30); Carbon Dioxide* 23 mmol/L (20-32); Creatinine* 1.1 mg/dL (0.5-1.5); Estimated Glomerular Filt Rate 68 ml/min; Glucose* 203 mg/dL (60-115); Total Protein* 7.4 g/dL (6.0-8.3)
[2022-01-22 21:31] LABS: Calcium* 9.7 mg/dL (8.4-10.6)
[2022-01-22 22:19] LABS: Hepatitis C Virus Antibody* Negative (Negative)
== END 2022-01-22 14:05 | disposition home or self-care (01) ==
PROVIDERS: PCP Family Medicine; Visit Provider Family Medicine
DX: Z01.818 Encounter for other preprocedural examination (principal); Z00.00 Encounter for general adult medical examination without abnormal findings; R73.03 Prediabetes; E78.5 Hyperlipidemia, unspecified; I10 Essential (primary) hypertension; Z11.59 Encounter for screening for other viral diseases
CPT/HCPCS: 80053; 83036; 85027; 86803

== ENCOUNTER 2022-06-26 13:52 | Outpatient (CLI) | payer MEDICARE, SELFPAY | END 2022-06-26 13:53 | disposition home or self-care (01) | LOC: RAD 13:54 | PROVIDERS: PCP Family Medicine; Visit Provider Internal Medicine Cardiovascular Disease | DX: I48.19 Other persistent atrial fibrillation (principal); I50.30 Unspecified diastolic (congestive) heart failure; I51.7 Cardiomegaly; I35.1 Nonrheumatic aortic (valve) insufficiency; I34.0 Nonrheumatic mitral (valve) insufficiency; I07.1 Rheumatic tricuspid insufficiency; I37.1 Nonrheumatic pulmonary valve insufficiency | CPT/HCPCS: 93306 ==

== ENCOUNTER 2022-11-20 13:31 | Outpatient (CLI) | payer MEDICARE, SELFPAY | END 2022-11-20 13:32 | disposition home or self-care (01) | LOC: FRMREF 13:32 | PROVIDERS: PCP Family Medicine; Visit Provider Family Medicine | DX: Z01.818 Encounter for other preprocedural examination (principal) | CPT/HCPCS: 80048 ==

== ENCOUNTER 2022-12-02 07:48 | Day surgery (SDC) | payer MEDICARE, SELFPAY ==
[2022-12-02] VITALS (24 sets, daily range): BP systolic 106–191; BP diastolic 56–179; PULSE 51–89; RESP 12–20; TEMP 36.1–36.8; O2SAT 92–98; BMI 34.6
[2022-12-02] MEDS: ACETAMINOPHEN 500 MG TABLET 1000 MG PO ×3 (08:05→21:10)
[2022-12-02] MEDS: CELECOXIB 200 MG CAPSULE PO (08:05)
[2022-12-02] MEDS: OXYCODONE (CR) 10 MG TAB.ER.12H PO (08:05)
[2022-12-02] MEDS: SODIUM CHLORIDE 0.9 % (FLUSH) 10 ML SYRINGE IVF (08:15)
[2022-12-02] MEDS: LACTATED RINGERS 1000 ML 1,000 ML 100 ML IV ×2 (08:15→09:58)
[2022-12-02] MEDS: MIDAZOLAM HCL 1 MG/ML inj IVP (09:16)
[2022-12-02] MEDS: fentaNYL 100 MCG/2 ML inj IVP (09:16)
--- NOTE | 2022-12-02 09:24 | SUR.PREOP ---
TIME?OUT:?0915 PT/Mirela SHEPPARD RN/Katie MONTOYA MDA?VERIFICATION?OF?SURGICAL?SITE,?PROCEDURE,?AND?CONSENT OBTAINED?PRIOR?TO?INVASIVE?PROCEDURE.
--- NOTE | 2022-12-02 09:31 | CRLHL7_ITS ---
For Patients: As a result of the Cures Act, medical imaging exams and procedure reports are released immediately into your electronic medical record. You may view this report before your referring provider. If you have questions, please contact your health care provider. INDICATION: Postop right total knee arthroplasty. TECHNIQUE: Two portable postoperative images of the right knee. COMPARISON: Pre-surgical images September 26, 2021. FINDINGS: Right total knee arthroplasty. Patellar resurfacing. The components are adequately aligned and well seated. Air within the joint space and soft tissues related to the surgery. Surgical clips posteromedial calf. IMPRESSION: Right knee arthroplasty. Patellar resurfacing. The components are adequately aligned and well seated. Dictated by Brian Ferreira MD @ 12/02/2022 7:43:58 PM (Electronically Signed)
[2022-12-02] MEDS: CEFAZOLIN 2 GM in 0.9 % SODIUM CHLORIDE Mini-bag 100 ML IVPB ×2 (09:35→15:56)
[2022-12-02] MEDS: TRANEXAMIC ACID 100 MG/ML INJ 1000 MG IV (09:36)
--- NOTE | 2022-12-02 10:06 | SUR.OPER ---
PATIENT QUESTIONS ANSWERED SATISFACTORILY PREOPERATIVELY.? PATIENT BROUGHT TO OR #3 PER CART AFTER ADMINISTRATION OF A BLOCK.? Patient positioned supine on OR #3 bed.? The perioperative?team supported arms bilaterally on arm boards.? Final approval of positioning by surgeon.?
--- NOTE | 2022-12-02 10:54 | W.PM.H&PU ---
History & Physical Update History & Physical Update H&P Reviewed and patient assessed: No changes noted
--- NOTE | 2022-12-02 10:58 | P.ORPRC_ITS ---
Procedure Note Procedure: PREOPERATIVE DIAGNOSIS: 1. Right knee osteoarthritis, primary, severe POSTOPERATIVE DIAGNOSIS: 1. Right knee osteoarthritis, primary, severe PROCEDURE: 1. Right total knee arthroplasty SURGEON: Sim Sandoval MD. [employer]ORATORY TECHNICIAN: GRACIELA Rizvi - Of note, a skilled chef's assistant was critical for this case to aid in patient positioning, tissue retraction, limb manipulation/positioning, and closure. ANESTHESIA: Spinal anesthetic IMPLANTS: DePuy J&J all cemented TKA - Attune PS femur size 7, size 8 tibia, 5 poly spacer, 38 mm patella TOURNIQUET: 90 min at 300 torr EBL: 50 ml COMPLICATIONS: None evident INDICATIONS: The patient is a pleasant 82-year-old male who has experienced severe right knee pain and difficulty bearing weight. Workup included x-rays which revealed severe osteoarthrosis in the knee. Given the deformity, the dysfunction, and the pain, as well as the failure of nonoperative management, recommendation was made for surgery. FINDINGS: Full-thickness chondral loss medial and patellofemoral compartments broadly. Lateral compartment also showed significant chondromalacia but to a lesser degree. Large effusion upon entering the joint. Significant prepatellar bursitis with thickening to the bursal pseudocapsule. DESCRIPTION OF PROCEDURE: Following a thorough discussion of risks, benefits, and alternatives consent was obtained and the right knee was marked. The patient was brought to the operating room and placed supine on the operating table. Induction of anesthesia was undertaken. 2 g IV Ancef and 1 g tranexamic acid was administered within 1 hr of incision preoperatively. Proper time-out was performed identifying proper patient, site, procedure. The operative extremity was prepped and draped in the appropriate sterile fashion using ChloraPrep after the patient was positioned supine with all bony prominences well padded. A longitudinal, anterior, midline skin incision was made starting approximately 3cm proximal to the superior pole of the patella and advanced distal to the tibial tubercle. A median parapatellar arthrotomy was created. A medial subperiosteal sleeve was created with knife, castle elevator and curved osteotome. The retropatellar fatpad was resected and the synovium in the suprapatellar pouch excised to visualize the anterior femoral cortex. Femoral preparation was performed via an intramedullary guide. Step drill allowed access into the femoral canal. The distal cutting guide was placed with 5? of valgus and 12 mm cut on the distal femur due to a significant flexion contracture (15+ degrees). Femur was sized using a posterior referencing guide in 3? of external rotation. This found have a best fit with the sizing noted above. The 4 in 1 cutting block was then placed, and the distal femur shaped accordingly. The box cut was then created and the trial implant inserted to confirm appropriate fit. We turned our attention to the proximal tibia. Extramedullary guide was utilized for cutting with the goal of being 90 degree cut from the mechanical axis of the tibia in the varus/valgus plane utilizing tibial crest as the primary alignment. Initially a 2 mm resection was performed from the medial tibial plateau. Ultimately, balancing was achieved in both flexion and extension in both varus and valgus. The knee was able to achieve full extension as well comfortably. The patella was initially measured and found have a thickness of 27 mm. It was resected back to approximately 17 mm. It was sized to be a best fit with as noted above. This was drilled, trial placed. All trials were placed and found to have an excellent stability and balance. At this stage, trial implants were removed, the knee was thoroughly irrigated with normal saline, and the cement was mixed. After irrigation, the knee was thoroughly dried, and cement placed, with the real tibial and femoral implants placed along with the patella. Trial poly spacer was placed and confirmed to have excellent range of motion and full extension, and the real poly spacer opened and inserted. All extra cement was removed, and a 3 min Betadine soak performed. Finally, a final irrigation round with normal saline was performed. Closure performed with 0 Vicryl and #0 Stratafix for the quad tendon/retinaculum. 2-0 Vicryl for the subcutaneous and 4-0 Stratafix for subcuticular closure. Dressings were applied and the patient was awoken from anesthesia after the tourniquet deflated and transferred the PACU in stable condition. A skilled chef's assistant was critical for this case to aid in patient positioning, tissue retraction, bone exposure, limb manipulation/positioning, patient safety, and closure. PLAN: 1. Weight bear as tolerated operative extremity. 2. 23 hr perioperative antibiotics. 3. Ice. 4. PT/OT consults for ambulation assistance/mobility education. 5. Social work consult for discharge planning. 6. DVT prophylaxis with at SCDs, Riley De, and resume his Eliquis use.
--- NOTE | 2022-12-02 11:46 | W.ANESCHARGE ---
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
--- NOTE | 2022-12-02 13:53 | W.ANESCHARGE ---
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
[2022-12-02] MEDS: OXYCODONE 5 MG TABLET PO (15:56)
--- NOTE | 2022-12-02 16:56 | P.IMCN_ITS ---
Date of Consult Consult date: 12/02/22 Requesting Physician: Orthopedics Primary Care Provider: Jessica Villalobos MD Consult Narrative Reason for consult: Medical management following right knee surgery Narrative: Jose Luis Fernandez is a 82 year old male seen in consultation for management of medical problems following right total knee arthroplasty. Consultation requested by Dr. Sandoval. Patient underwent right total knee arthroplasty without complications today. Postoperatively he reports feeling well. He is not having significant pain. He has minimal nausea, no dyspnea or chest pain. Preoperatively he reports he was doing well he has had no recent illness or injury. He was hoping to have this surgery done a year ago but he sustained an ankle fracture just prior to scheduled surgery and so it was postponed. He has a history of coronary artery bypass grafting 3 years ago. Subsequent to that he has had no further cardiac symptoms. He does have limited exercise tolerance. His home has 14 steps to get from the entry to the level of the bedrooms. He tells me he cannot do all 14 steps without stopping to catch his breath. He also reports very limited tolerance of activity outside the house. Says is 30 [address] to his barn from his house and somewhat down hill. He can walk that down hill without difficulty but has to stop on his way a pill to get his breath. Bilateral knee pain also very much limits his activity. Preoperatively he had had estimate from the [employer]CR[employer] of 10% 30 day risk for IN or cardiac . I calculated today and came back 11%. Alternative Guardado risk calculator came up with an estimate closer to 1%. Patient is on Eliquis for atrial fibrillation. Preop instructions were the for him to stop his Eliquis 7 days preop and start taking aspirin 81 mg daily. He has done this. Review of Systems Narrative: Patient reports no significant health problems or concerns at this time other than his knee pain. No previous history of problems with anesthesia, bleeding or blood clotting. [facility] Medical History (Updated 12/02/22 @ 17:12 by Ray Ramirez MD) CAD (coronary artery disease) ?I25.10 - Atherosclerotic heart disease of unga coronary artery without angina pectoris (ICD-10) Type 2 diabetes mellitus ?E11.9 - Type 2 diabetes mellitus without complications (ICD-10) Hypertension (03/01/13) ?I10 - Essential (primary) hypertension (ICD-10) Heart failure with preserved ejection fraction ?I50.30 - Unspecified diastolic (congestive) heart failure (ICD-10) Atrial fibrillation with rapid ventricular response ?I48.91 - Unspecified atrial fibrillation (ICD-10) Ascending aorta dilatation ?I77.810 - Thoracic aortic ectasia (ICD-10) Diabetes ?E11.9 - Type 2 diabetes mellitus without complications (ICD-10) Tubular adenoma (10/19/12) ?D36.9 - Benign neoplasm, unspecified site (ICD-10) Alcohol abuse ?F10.10 - Alcohol abuse, uncomplicated (ICD-10) GERD (gastroesophageal reflux disease) ?K21.9 - Gastro-esophageal reflux disease without esophagitis (ICD-10) Closed fracture of right distal fibula ?S82.831A - Other fracture of upper and lower end of right fibula, initial encounter for closed fracture (ICD-10) Syncope ?R55 - Syncope and collapse (ICD-10) Acute kidney injury ?N17.9 - Acute kidney failure, unspecified (ICD-10) Surgical History History of three vessel coronary artery bypass (~11/2019) ?Z95.1 - Presence of aortocoronary bypass graft (ICD-10) History of prostate biopsy ?Z98.890 - Other specified postprocedural states (ICD-10) History of colonoscopy ?Z98.890 - Other specified postprocedural states (ICD-10) History of coronary artery bypass graft ?Z95.1 - Presence of aortocoronary bypass graft (ICD-10) Family History Mother Stroke, Onset Age: 56 Brother Diabetes Myocardial infarction Father Pancreatic cancer, Onset Age: 52 Social History (Updated 12/02/22 @ 17:07 by Ray Ramirez MD) Narrative: does not use illicit drugs former smoker- quit in 1984 occasional alcohol consumption he estimates 2 drinks twice a week. He does not drink every day. He [place] his [place]. is healthcare power of workers compensation attorney. Code status is full. He endorses house at the lower level without steps. He then S to go up 7 steps to get to the level of the kitchen and living room and another 7 steps up to get to his bedroom. What is your current living situation?: I presently have a place to live Problems where you live: no known problems Problems where you live details: none In the past 12 months, utilities in danger of being shut off: no In the past 12 mos, have been you worried that your food would run out before you had money to buy more?: never true In the past 12 mos, the food you bought just didn't last and you didn't have money to buy more?: never true Highest level of school completed/degree received: high school graduate Smoking Status: Never smoker Do you use any of these nicotine containing products: None Second hand tobacco smoke exposure: Yes How often do you have a drink containing alcohol: 2-4 times a month Alcohol type: hard liquor How many standard drinks containing alcohol do you have on a typical day: 1 or 2 How often do you have six or more drinks on one occasion: Never AUDIT-C Alcohol total score: 2 Non-prescribed substance use: denies use Caffeine: No How often does anyone, including family, friends and others, physically hurt you : never How often does anyone, including family, friends and others, insult or talk down to you: never How often does anyone, including family, friends and others, threaten you with harm: never How often does anyone, including family, friends and others, scream or curse at you: never service: No Meds Home Medications and Allergies Home Medications Medication Instructions Recorded Confirmed Type Diabetic Test Strips 11/03/21 09/10/22 History nitroglycerin 0.4 mg sublingual 0.4 mg sublingual Q5M PRN 11/03/21 12/02/22 History tablet mecobalamin (vitamin B12) 1,000 1,000 mcg PO DAILY 01/22/22 12/02/22 History mcg chewable tablet carvedilol 25 mg tablet 25 mg PO BID 09/10/22 12/02/22 History empagliflozin 10 mg tablet 10 mg PO DAILY 09/10/22 12/02/22 History (Jardiance) losartan 25 mg tablet 25 mg PO BID 09/10/22 12/02/22 History spironolactone 25 mg tablet 12.5 mg PO DAILY 09/10/22 12/02/22 History magnesium oxide 500 mg tablet 500 mg PO BID 11/20/22 12/02/22 History metformin 500 mg tablet,extended 500 mg PO BIDWM 12/02/22 12/02/22 History release 24 hr Allergies Allergy/AdvReac Type Severity Reaction Status Date / Time Penicillins Allergy Severe Hives Verified 12/02/22 08:20 warfarin Allergy Unknown Diarrhea Verified 12/02/22 08:20 simvastatin AdvReac Mild achy Verified 12/02/22 08:20 bones, muscles Exam Narrative: Exam Narrative: He is alert and appears in no distress. He gives his own history. Breathing is unlabored. Oropharynx with small airway. Neck is supple without mass or adenopathy. Respirations are clear to auscultation. Cardiovascular: S1, S2, regular rate and rhythm. Abdomen is soft without tenderness or mass. Extremities with intact pulses. No significant edema. He is just regaining motion in his feet and ankles but still has anesthesia over his right foot and toes. Const: Vital Signs, click to edit/add: Vital Signs - 24 hr 12/02/22 08:22 12/02/22 09:15 12/02/22 09:20 Temperature 97.8 F Pulse Rate 80 60 63 Pulse Rate [Pulse Oximeter] Respiratory Rate 20 16 14 Blood Pressure 133/75 135/71 108/66 Blood Pressure [Le ft Arm] Blood Pressure [Ri ght Arm] Pulse Oximetry 95 98 92 Oxygen Delivery Me thod Room Air Nasal Cannula Nasal Cannula Oxygen Flow Rate 2 2 12/02/22 11:32 12/02/22 11:35 12/02/22 11:40 Temperature 97.9 F Pulse Rate 58 L 60 51 L Pulse Rate [Pulse Oximeter] Respiratory Rate 16 14 15 Blood Pressure 113/56 L 115/65 106/70 Blood Pressure [Le ft Arm] Blood Pressure [Ri ght Arm] Pulse Oximetry 98 96 95 Oxygen Delivery Me thod Room Air Room Air Room Air Oxygen Flow Rate 12/02/22 11:45 12/02/22 11:50 12/02/22 11:55 Temperature 98.3 F Pulse Rate 52 L 60 61 Pulse Rate [Pulse Oximeter] Respiratory Rate 15 12 15 Blood Pressure 120/69 120/67 125/65 Blood Pressure [Le ft Arm] Blood Pressure [Ri ght Arm] Pulse Oximetry 96 98 98 Oxygen Delivery Me thod Room Air Room Air Room Air Oxygen Flow Rate 12/02/22 12:00 12/02/22 12:03 12/02/22 12:12 Temperature 97.8 F 97.1 F L Pulse Rate 62 55 L 64 Pulse Rate [Pulse Oximeter] Respiratory Rate 13 16 18 Blood Pressure 127/69 137/67 Blood Pressure [Le ft Arm] 134/73 Blood Pressure [Ri ght Arm] Pulse Oximetry 98 98 Oxygen Delivery Me thod Room Air Room Air Room Air Oxygen Flow Rate 12/02/22 12:12 12/02/22 12:15 12/02/22 12:30 Temperature 97.1 F L 97.1 F L 97.0 F L Pulse Rate Pulse Rate [Pulse Oximeter] 64 53 L 57 L Respiratory Rate 18 18 16 Blood Pressure Blood Pressure [Le ft Arm] Blood Pressure [Ri ght Arm] 134/73 119/71 129/62 Pulse Oximetry 96 96 95 Oxygen Delivery Me thod Room Air Room Air Room Air Oxygen Flow Rate 12/02/22 12:45 12/02/22 13:00 12/02/22 13:30 Temperature 97.0 F L 97.0 F L 97.0 F L Pulse Rate Pulse Rate [Pulse Oximeter] 55 L 59 L 64 Respiratory Rate 18 18 18 Blood Pressure Blood Pressure [Le ft Arm] Blood Pressure [Ri ght Arm] 140/75 H 135/104 H 142/98 H Pulse Oximetry 96 95 97 Oxygen Delivery Me thod Room Air Room Air Room Air Oxygen Flow Rate 12/02/22 14:00 Temperature 97.1 F L Pulse Rate Pulse Rate [Pulse Oximeter] 60 Respiratory Rate 18 Blood Pressure Blood Pressure [Le ft Arm] Blood Pressure [Ri ght Arm] 163/88 H Pulse Oximetry 98 Oxygen Delivery Me thod Room Air Oxygen Flow Rate 2 Documenting provider has reviewed patient's vital signs: yes Assessment and Plan Assessment and plan (1) Osteoarthritis of right knee: Problem comment: Severe, [id number]. Right total knee arthroplasty 12/02/[address] Sandoval Status: Acute (2) CAD (coronary artery disease): Problem comment: 3 vessel cabg October 2019. Currently asymptomatic Status: Acute (3) Atrial fibrillation with rapid ventricular response: Status: Acute (4) Ascending aorta dilatation: Status: Acute (5) Type 2 diabetes mellitus: Status: Acute (6) Hypertension: Status: Acute (7) Heart failure with preserved ejection fraction: Status: Acute (8) Chronic anticoagulation: Problem comment: Apixaban held for the past week. On aspirin for the last week. Stop aspirin and restart apixaban postoperatively Status: Acute Plan 82-year-old male status post right total knee arthroplasty doing quite well. Patient is deemed to be high risk for cardiovascular complications following surgery. At this point will resume his normal medications including apixaban, statin and blood pressure medicines if tolerated. Routine pain management and routine therapy. Anticipate discharge to home with if doing well. Total time spent today is 50 minutes, 30 minutes in coordination of care discussing with patient other providers ongoing evaluation management of postoperative care and heart disease
[2022-12-02] MEDS: LACTATED RINGERS 1000 ML 1,000 ML 75 ML IV (17:36)
[2022-12-02] MEDS: METFORMIN ER 500 MG PO (18:28)
--- NOTE | 2022-12-02 18:51 | PC.NURSE ---
End of shift- Post RTKAileen arrived to the floor at 1200. Post op vitals are completed. He had normal BP upon arrival, and consistently got more hypertensive. His last BP @ 1800 was 191/179. Because of surgery he did not take his normal BP medication, charge nurse was notified to let hospitalist know this evening. Reports mild pain 2/10. 5mg of oxy was given 1 time, reported 0/10 after administration. Cyrocuff to op site, dressing is CDI. Got up to the chair with PT this afternoon W/ Ax1 and RW. Calls appropriately. Voiding in the urinal has had 500 out since surgery.
[2022-12-02] MEDS: SENNOSIDES 1 TAB TABLET 2 TAB PO (21:10)
[2022-12-02] MEDS: MAGNESIUM OXIDE 400 MG TABLET 800 MG PO (21:10)
[2022-12-02] MEDS: LOSARTAN POTASSIUM 50 MG TABLET 25 MG PO (21:11)
[2022-12-02] MEDS: carvediloL 25 MG TABLET PO (21:11)
[2022-12-03] MEDS: OXYCODONE 5 MG TABLET PO ×2 (00:32→08:54)
[2022-12-03] MEDS: CEFAZOLIN 2 GM in 0.9 % SODIUM CHLORIDE Mini-bag 100 ML IVPB (00:42)
[2022-12-03 03:00] VITALS: BP 151/107; PULSE 73; RESP 16; TEMP 36.6; O2SAT 96
[2022-12-03] MEDS: ACETAMINOPHEN 500 MG TABLET 1000 MG PO (04:57)
--- NOTE | 2022-12-03 06:19 | PC.NURSE ---
Shift note: Pt has been well dealing with pain and ability to walk. Pain level rated at 1 and 2 and only requested for 1x PRN pain medication. Cryo cuff applied. Dressing appear clean and dry. Ambulate with A1, walker and GB. Pt had adequate sleep. Tolerated regular diet well without any abd complications. Systolic Bp has been unstable ranging between 151 and 170. Scheduled Losartan and Carvedilol given.
[2022-12-03 06:50] LABS: Hematocrit 34.2 % (37.0-53.0); Hemoglobin* 11.6 gm/dL (13.5-17.5); Immature Granulocytes Abs Auto 0.03 K/uL (0.00-0.30); Immature Granulocytes Pct Auto 0.6 %; Lymphocytes Percent Auto 10.4 % (20-44); Mean Corpuscular HGB Conc 34 gm/dL (32-36); Mean Corpuscular Hemoglobin 31 pg (26-34); Mean Corpuscular Volume 93 fL (80-100); Monocytes Percent Auto 5.7 % (0.0-11.0); Neutrophils Percent Auto 83.3 % (42.0-72.0); Platelet Count* 142 K/uL (140-440); RDW Coefficient of Variation % 14.6 % (11.5-15.5); Red Blood Count 3.69 m/uL (4.30-5.90); White Blood Count* 5.11 K/uL (4.50-11.00)
[2022-12-03 06:57] LABS: Slide Review Reflex No
[2022-12-03 07:00] VITALS: BP 136/85; PULSE 77; RESP 20; TEMP 36.6; O2SAT 98
[2022-12-03 07:02] LABS: Sodium* 134 mmol/L (135-149)
[2022-12-03 07:05] LABS: Blood Urea Nitrogen* 31 mg/dL (7-30); Creatinine* 1.3 mg/dL (0.5-1.5); Est. Creatinine Clearance* 43.85; Estimated Glomerular Filt Rate 56 ml/min; Glucose* 179 mg/dL (60-115)
[2022-12-03] MEDS: LOSARTAN POTASSIUM 50 MG TABLET 25 MG PO (08:53)
[2022-12-03] MEDS: MAGNESIUM OXIDE 400 MG TABLET 800 MG PO (08:54)
[2022-12-03] MEDS: OMEPRAZOLE 20 MG CAPSULE DR PO (08:54)
[2022-12-03] MEDS: FUROSEMIDE 20 MG TABLET PO (08:54)
[2022-12-03] MEDS: SPIRONOLACTONE 25 MG TABLET 12.5 MG PO (08:54)
[2022-12-03] MEDS: EMPAGLIFLOZIN 10 MG TABLET PO (08:55)
[2022-12-03] MEDS: carvediloL 25 MG TABLET PO (08:55)
[2022-12-03] MEDS: SENNOSIDES 1 TAB TABLET 2 TAB PO (08:55)
[2022-12-03] MEDS: METFORMIN ER 500 MG PO (08:56)
[2022-12-03] MEDS: APIXABAN 5 MG TABLET PO (08:56)
[2022-12-03] MEDS: FERROUS SULFATE 325 MG TABLET PO (08:56)
[2022-12-03] MEDS: TAMSULOSIN HCL 0.4 MG CAPSULE PO (08:56)
[2022-12-03] MEDS: CYANOCOBALAMIN (VITAMIN B-12) 500 MCG TABLET 1000 MCG PO (08:56)
[2022-12-03] MEDS: ROSUVASTATIN CALCIUM 10 MG TABLET 20 MG PO (08:56)
[2022-12-03] MEDS: FINASTERIDE 5 MG TABLET PO (08:56)
--- NOTE | 2022-12-03 08:58 | PM.ORPN ---
Subjective Subjective Time Seen by Provider: 08:00 Date Seen: 12/03/22 Principal diagnosis: Day 1 s/p right total knee arthroplasty Interval history: Aditya is doing well this morning and is resting comfortably in his recliner. Accompanied by his , Shirley. Reports minimal right knee pain, well managed with Oxycodone, Tylenol and icing PRN. Denies: fever, chills, chest pain, SOB, nausea, vomiting. Denies bowel movement since surgery, but reports some flatulence. Patient feels ready to be discharged to home later this morning. No acute events over night. Ortho Exam Narrative Exam Narrative: Incision/Dressing: Dressing appears clean and dry. No drainage present. Mepilex intact. Right knee appears moderately swollen but supple with no obvious erythema, fluctuance or excessive warmth. No ecchymosis or erythematous streaking. Warmth around the wound is appropriate. Ice is being utilized as needed. CMS: Intact distally with 2+ Dorsalis pedis and Posterior Tibial pulses. 5/5 motor strength dorsal and plantar flexion. Confirmed sensation distally. Intact straight leg raise. Calf: Bilateral calves are supple, with no swelling, pain, tenderness, erythema, discoloration or coolness to the touch. Constitutional: Patient is alert and oriented x3. Patient is in no acute distress and converses without labored breathing. Patient is able to make decisions and demonstrates good insight. Patient is pleasant and cooperative. Affect is full range and appropriate for the circumstances. Const Vital Signs, click to edit/add: Vital Signs - 24 hr 12/02/22 09:15 12/02/22 09:20 12/02/22 11:32 Temperature 97.9 F Pulse Rate 60 63 58 L Pulse Rate [Pulse Oximeter] Respiratory Rate 16 14 16 Blood Pressure 135/71 108/66 113/56 L Blood Pressure [Left Arm] Blood Pressure [Right Arm] Pulse Oximetry 98 92 98 Oxygen Delivery Method Nasal Cannula Nasal Cannula Room Air Oxygen Flow Rate 2 2 12/02/22 11:35 12/02/22 11:40 12/02/22 11:45 Temperature 98.3 F Pulse Rate 60 51 L 52 L Pulse Rate [Pulse Oximeter] Respiratory Rate 14 15 15 Blood Pressure 115/65 106/70 120/69 Blood Pressure [Left Arm] Blood Pressure [Right Arm] Pulse Oximetry 96 95 96 Oxygen Delivery Method Room Air Room Air Room Air Oxygen Flow Rate 12/02/22 11:50 12/02/22 11:55 12/02/22 12:00 Temperature 97.8 F Pulse Rate 60 61 62 Pulse Rate [Pulse Oximeter] Respiratory Rate 12 15 13 Blood Pressure 120/67 125/65 127/69 Blood Pressure [Left Arm] Blood Pressure [Right Arm] Pulse Oximetry 98 98 98 Oxygen Delivery Method Room Air Room Air Room Air Oxygen Flow Rate 12/02/22 12:03 12/02/22 12:12 12/02/22 12:12 Temperature 97.1 F L 97.1 F L Pulse Rate 55 L 64 Pulse Rate [Pulse Oximeter] 64 Respiratory Rate 16 18 18 Blood Pressure 137/67 Blood Pressure [Left Arm] 134/73 Blood Pressure [Right Arm] 134/73 Pulse Oximetry 98 96 Oxygen Delivery Method Room Air Room Air Room Air Oxygen Flow Rate 12/02/22 12:15 12/02/22 12:30 12/02/22 12:45 Temperature 97.1 F L 97.0 F L 97.0 F L Pulse Rate Pulse Rate [Pulse Oximeter] 53 L 57 L 55 L Respiratory Rate 18 16 18 Blood Pressure Blood Pressure [Left Arm] Blood Pressure [Right Arm] 119/71 129/62 140/75 H Pulse Oximetry 96 95 96 Oxygen Delivery Method Room Air Room Air Room Air Oxygen Flow Rate 12/02/22 13:00 12/02/22 13:30 12/02/22 14:00 Temperature 97.0 F L 97.0 F L 97.1 F L Pulse Rate Pulse Rate [Pulse Oximeter] 59 L 64 60 Respiratory Rate 18 18 18 Blood Pressure Blood Pressure [Left Arm] Blood Pressure [Right Arm] 135/104 H 142/98 H 163/88 H Pulse Oximetry 95 97 98 Oxygen Delivery Method Room Air Room Air Room Air Oxygen Flow Rate 12/02/22 15:00 12/02/22 15:00 12/02/22 16:00 Temperature 97.1 F L Pulse Rate Pulse Rate [Pulse Oximeter] 89 Respiratory Rate 16 Blood Pressure Blood Pressure [Left Arm] Blood Pressure [Right Arm] 158/107 H Pulse Oximetry 97 94 98 Oxygen Delivery Method Room Air Oxygen Flow Rate 12/02/22 16:00 12/02/22 17:00 12/02/22 18:36 Temperature 97.1 F L 97.1 F L 97.3 F L Pulse Rate Pulse Rate [Pulse Oximeter] 71 63 78 Respiratory Rate 16 16 16 Blood Pressure Blood Pressure [Left Arm] Blood Pressure [Right Arm] 172/96 H 180/107 H 191/179 H Pulse Oximetry 96 96 96 Oxygen Delivery Method Room Air Room Air Room Air Oxygen Flow Rate 12/02/22 19:00 12/02/22 23:00 12/02/22 23:00 Temperature 97.4 F L Pulse Rate Pulse Rate [Pulse Oximeter] 76 78 Respiratory Rate 16 Blood Pressure Blood Pressure [Left Arm] Blood Pressure [Right Arm] 158/92 H Pulse Oximetry 95 96 Oxygen Delivery Method Room Air Oxygen Flow Rate 12/02/22 23:00 12/03/22 03:00 Temperature 97.6 F 97.8 F Pulse Rate Pulse Rate [Pulse Oximeter] 78 73 Respiratory Rate 16 16 Blood Pressure Blood Pressure [Left Arm] Blood Pressure [Right Arm] 170/93 H 151/107 H Pulse Oximetry 96 96 Oxygen Delivery Method Room Air Room Air Oxygen Flow Rate Assessment and Plan Assessment and plan (1) Osteoarthritis of right knee: Problem details: Day 1 s/p right total knee arthroplasty 12/02/2022, Dr. Sandoval Status: Acute Assessment and Plan: Wound: ?Do not remove original dressing; we will remove this at first postop visit in 1 week. Only remove dressing if integrity is in question. ?No immersing wound in water; showering okay; light scrub with your hand and body soap, rinse, dab dry ?Sutures are under the skin, will dissolve; allow surgical glue to come off naturally; do not scrub the wound or apply ointments/lotions ?Call our office with any redness that streaks, excessive drainage from the wound, or wound gapping. Ice/Elevate: ?Ice as needed for swelling and discomfort (cryocuff or ice pack); elevate frequently above the heart RACHEL socks: ?Wear for 1 month, remove for 1 hour 3 times per day ?These are frustrating to take on/off, but are important for blood clot prevention for 1 month after surgery Blood Clot Prevention (DVT): ?Medication: Resume Eliquis Ambulate every hour throughout the day Driving: ?Do not drive while taking narcotic pain medication ?Anticipate 4-6 weeks no driving if operative leg is driving leg Dental: ?No elective dental work for 6 months post-op. If there is an urgent/emergent dental need, contact our office for an antibiotic prescription. Smoking/Alcohol: ?Do not smoke; do no drink alcohol especially when taking postoperative oral narcotic medication Seek Care from you Primary Care Provider if you experience the following issues in the postoperative phase and beyond: ?Bacterial infections such as: pneumonia, bacterial skin infection (cellulitis), UTI, high fever, chills unrelated to the operative body part - call your primary care physician urgently for treatment in hopes to protect your health and the metal implant. Referrals: ?PT, OT per patient preference - evaluate treat total knee arthroplasty protocol (gait training, ROM, ADLs) Follow up: ?Ortho surgeon follow-up in 6 weeks; repeat radiographs three views operative knee ?PA-C visit in 1 week *If there are any acute concerns regarding your surgery, please call our orthopedic clinic ([phone])
--- NOTE | 2022-12-10 06:43 | P.NB_ITS ---
Nerve Block Nerve Block Time Seen by Provider: 09:18 Date Seen: 12/02/22 Type of block requested by surgeon for post-operative analgesia: adductor canal Side: right Time out performed: Yes Verification of patient name: Yes Verification of date of : Yes Site marking: site marked Name of person performing procedure: Denilson Continuous monitoring Was continuous monitoring of O2 sat, B/P, court recording monitor, recorded every 15 minutes?: Yes Procedure Checklist: sterile prep, needles and gloves Ultrasound guided. Images saved: Yes Medications given in 5ml increments after negative aspiration: Ropivicaine %: 0.5 mL: 20 Needle gauge: 20 Decadron (mg): 10 Precedex (mcg): 25 Patient tolerated procedure well: Yes Additional comments: Needle noted adjacent to nerve Block Charges Block Charge (with Pro Fee): Femoral Nerve Use of Ultrasound Machine for Block: Yes- US Guidance/pain block
--- NOTE | 2022-12-10 06:45 | P.NB_ITS ---
Nerve Block Nerve Block Time Seen by Provider: 09:18 Date Seen: 12/02/22 Type of block requested by surgeon for post-operative analgesia: geniculars Side: right Time out performed: Yes Verification of patient name: Yes Verification of date of : Yes Site marking: site marked Name of person performing procedure: Denilson Continuous monitoring Was continuous monitoring of O2 sat, B/P, groundwater monitoring technician, recorded every 15 minutes?: Yes Procedure Checklist: sterile prep, needles and gloves Medications given in 5ml increments after negative aspiration: Ropivicaine %: 0.5 mL: 9 Needle gauge: 25 Patient tolerated procedure well: Yes Block Charges Block Charge (with Pro Fee): Genicular Nerve Block Use of Ultrasound Machine for Block: No
== END 2022-12-03 10:48 | disposition home or self-care (01) ==
LOC: OR 07:48 → MEDSURG 07:51
PROVIDERS: Family Medicine; PCP Family Medicine; Visit Provider Orthopaedic Surgery Sports Medicine
PROC: (CPT 27447; principal; 2022-12-02 10:00)
DX: M17.11 Unilateral primary osteoarthritis, right knee (principal); G89.18 Other acute postprocedural pain; I25.10 Atherosclerotic heart disease of native coronary artery without angina pectoris; Z95.1 Presence of aortocoronary bypass graft; I48.91 Unspecified atrial fibrillation; E11.9 Type 2 diabetes mellitus without complications; I11.0 Hypertensive heart disease with heart failure; I50.31 Acute diastolic (congestive) heart failure; Z79.01 Long term (current) use of anticoagulants; I77.819 Aortic ectasia, unspecified site
CPT/HCPCS: 27447; 01400; 01402; 36415; 64447; 64454; 73560; 76942; 82565; 82947; 82962; 84132; 84295; 84520; 85025; 97110; 97116; 97162; 97165; 99100; A9270; C1776; J0690; J1100; J2250; J2405; J2704; J2795; J3010; J7120

== ENCOUNTER 2023-01-07 11:15 | Outpatient (RCR) | payer MEDICARE, SELFPAY ==
--- NOTE | 2022-11-19 11:42 | PT.OPEX ---
PT [place] Outpatient Eval PT [facility] Outpatient Eval Start: 11/19/22 10:21 Freq: Status: Active Protocol: Document 11/19/22 10:22 RAJESH (Rec: 11/19/22 11:41 SHAYLAAGERUche [id number]) E-signed By Raquel Mathias Physical Therapy Outpatient Evaluation Insurance Information Recert Due Date 02/18/23 Insurance Name Medicare B,Blue Cross/Blue Shield Medical Diagnosis M17.11 R knee OA Z96.651 Presence of R artificial knee Treating Diagnosis M25.561 Pain in R knee M25.661 Stiffness in R knee Z47.1 Aftercare following joint replacement Referring MD Sandoval Subjective Subjective Pt presents today pre-op for RTKA on 12/02/[address] Sandoval. Pt reports this is his first joint replacement. Walking and going up and down steps inc pain. L knee is also painful and will get a replacement in the first. Does not take any medications for pain, occasionally will take a Tylenol. Does not use ice/ heat. Lives with who can assist. Multilevel home, no steps to enter. Bedroom is upstairs, bathroom on main level. Plans on staying on main level after surgery. Walk in shower with bath bench. Standard toilet seat with raised seat attachment. Has counter on side of the toilet. Has 2WW and SPC. Date of Next Physician Visit 12/11/22 Date of Surgery (If applicable) 12/02/22 Current Work Status Retired Preferred Name Aditya Precautions Treatment Precautions/Contraindications PMHx: CAD, CHF, DM, HLD, CLAUDETTE Weight Bearing Status Weight Bear as Tolerated Therapy Limitations/Systems Review Not Limited Objective Range of Motion R knee ROM = 10-122 L knee ROM = 3-122 Hamstring length = B WNLs B shoulder flexion/abd limited to 120, pain in R shoulder Strength Hip flexion L/R = 5/5 Hip abd L/R = 5/5 Hip add L/R = 5/5 Quads L/R = 4+/5 Hamstrings L/R = 4+/4+ Palpation B patellas hypomobility Assessment Assessment/Impression Pt is a 82yo M presenting pre- op RTKA on 12/02/[address] Sandoval. PMHx: CAD, CHF, DM, HLD, CLAUDETTE. Pt reports long standing hx of B knee pain. Plans on replacing L knee in the future. PLOF: IND no AD. Has hx of R shoulder pain, B shoulder limited to 120 degrees of flexion/abduction. Pt displays dec B knee extension ROM, gait, and balance deficits. Pt lives with spouse in multilevel home , no steps to enter. Has walk in shower with shower chair. Has RW and SPC. Pt was educated on HEP, POC, pain/ swelling management, fall prevention, post-op precautions, equipment needs, and stair training. Pt would continue to benefit from skilled PT services to address post-op impairments. Primary Functional Limitations Pain with functional activities Gait and balance deficits ROM and strength deficits Plan of Care Rehabilitation Potential Good Physical Therapy Goals Within 4-6 weeks: 1.Pt will display active left knee ROM 0-120 deg to improve quality & safety of stair climbing. 2.Pt will display improved mechanics going up/down 13 stairs with a reciprocal pattern using 2 railings in order to safely get into house and 2nd floor of her home. 3. Pt will be independent with HEP to promote strength and decrease fall risk. 4.Pt will display improved left hip flex, hip ABD, quad and hamstring strength >4/5 in order to improve quality of gait without assistive device. 5.Pt will be able to stand for >15 minutes with B knee pain </= 2/10 in order to aid in meal preparation. Coordination/Communication With Referral Source Treatment Plan/Direct Interventions Gait Training,Joint Mobilization,Manual Therapy, Neuromuscular Re-ed,Self-Care/ Home Management,Therapeutic Activities,Therapeutic Exercises Frequency/Duration 2x/week for 6-8 weeks Patient Will Be Discharged From Therapy Completion of LTG(s),Skills Plateau,Independent w/HEP, Independently Progressing Evaluation Billing Untimed Code Treatment Minutes 10 PT Eval No Charge No Complexity Low Certification Information Initial Certification Date 11/19/22 Ending Certification Date 02/18/23 Provider Signature Shows Agreement With POC & Medical Necessity Physician Comment/Change : Physician NPI Number #
== END 2023-03-19 17:25 | disposition home or self-care (01) ==
PROVIDERS: PCP Family Medicine; Visit Provider Orthopaedic Surgery Sports Medicine
DX: M17.11 Unilateral primary osteoarthritis, right knee (principal); Z96.651 Presence of right artificial knee joint; M25.561 Pain in right knee; M25.661 Stiffness of right knee, not elsewhere classified; Z47.1 Aftercare following joint replacement surgery; Z51.89 Encounter for other specified aftercare
CPT/HCPCS: 97110; 97116; 97140; 97161; 97164; 97535

== ENCOUNTER 2023-04-23 14:32 | Outpatient (CLI) | payer MEDICARE, SELFPAY | END 2023-04-23 14:33 | disposition home or self-care (01) | PROVIDERS: PCP Family Medicine; Visit Provider Family Medicine | DX: Z00.00 Encounter for general adult medical examination without abnormal findings (principal); I10 Essential (primary) hypertension; E11.9 Type 2 diabetes mellitus without complications; E78.5 Hyperlipidemia, unspecified; D61.818 Other pancytopenia; N40.0 Benign prostatic hyperplasia without lower urinary tract symptoms; Z12.5 Encounter for screening for malignant neoplasm of prostate | CPT/HCPCS: 80053; 82043; 82570; 82607; G0103 ==

== ENCOUNTER 2023-05-05 10:48 | Outpatient (CLI) | payer MEDICARE, SELFPAY ==
--- NOTE | 2023-05-05 11:00 | CRLHL7_ITS ---
For Patients: As a result of the Century Cures Act, medical imaging exams and procedure reports are released immediately into your electronic medical record. You may view this report before your referring provider. If you have questions, please contact your health care provider. Examination: US abdominal aorta Indication: Abdominal aortic aneurysm screening. Technique: Cagle scale and color Doppler images of the aorta and common iliac arteries are obtained. Exam limited by bowel gas. Comparison: None Findings: Proximal aorta: 2.8 x 2.8 cm Mid aorta: Not visualized. Distal aorta: 1.7 x 1.8 cm Right common iliac artery: 1.5 x 1.5 cm Left common iliac artery: 1.5 x 1.4 cm Impression: No aneurysm within the visualized aorta. The mid aorta is obscured by bowel gas. Dictated by Mekhi Carrillo MD @ 05/05/2023 11:52:07 AM (Electronically Signed)
== END 2023-05-05 10:49 | disposition home or self-care (01) ==
PROVIDERS: PCP Family Medicine; Visit Provider Family Medicine
DX: Z13.6 Encounter for screening for cardiovascular disorders (principal); Z87.891 Personal history of nicotine dependence
CPT/HCPCS: 76706

== ENCOUNTER 2024-01-11 09:26 | Outpatient (CLI) | payer MEDICARE, SELFPAY | END 2024-01-11 09:27 | disposition home or self-care (01) | LOC: OP CLINIC 09:28 | PROVIDERS: PCP Family Medicine; Visit Provider Surgery | DX: Z53.8 Procedure and treatment not carried out for other reasons (principal) ==

== ENCOUNTER 2024-03-22 21:24 | Emergency (ER) | payer MEDICARE, SELFPAY ==
[2024-03-22 21:29] VITALS: BP 130/68; PULSE 114; RESP 20; TEMP 36.2; O2SAT 95; BMI 36.2
--- NOTE | 2024-03-22 21:54 | ED.GENADULT ---
HPI - General Adult General Chief complaint: Unspecified Complaint, Adult Stated complaint: Chills, aches Time Seen by Provider: 03/22/24 21:33 History of Present Illness HPI narrative: This 83-year-old male comes in because of rigors that started a few hours prior to arrival. He is no longer feeling those uncontrollable chills and he arrives here with normal vital signs. He did not take any medications for this. He does not report any pain. He does not have any signs of infection. There is no report of cough for dysuria symptoms. Related Data Home Medications ?Medication ?Instructions ?Recorded ?Confirmed Diabetic Test Strips 11/03/21 06/08/23 mecobalamin (vitamin B12) 1,000 1,000 mcg PO DAILY 01/22/22 01/04/24 mcg chewable tablet magnesium oxide 500 mg PO BID 11/20/22 01/04/24 Previous Rx's ?Medication ?Instructions ?Recorded apixaban 5 mg tablet 5 mg PO BID #180 tabs 11/03/21 acetaminophen 500 mg tablet 500 - 1,000 mg (1 - 2 x 500 mg) PO 12/03/22 Q4-6H PRN #100 tabs carvedilol 6.25 mg tablet 6.25 mg PO BID #180 tabs 04/23/23 empagliflozin 10 mg tablet 10 mg PO DAILY #90 tabs 04/23/23 (Jardiance) finasteride 5 mg tablet 5 mg PO DAILY #90 tabs 04/23/23 furosemide 20 mg tablet 20 mg PO QAM #90 tabs 04/23/23 losartan 25 mg tablet 25 mg PO DAILY #90 tabs 04/23/23 omeprazole 20 mg capsule,delayed 20 mg PO DAILY #90 caps 04/23/23 release spironolactone 25 mg tablet 12.5 mg (1/2 x 25 mg) PO DAILY #45 04/23/23 tabs tamsulosin 0.4 mg capsule 0.4 mg PO DAILY #90 caps 04/23/23 ferrous gluconate 324 mg (38 mg 324 mg PO DAILY #90 tabs 09/30/23 iron) tablet peg 3350-electrolytes 236 240 ml PO Q10M #4,000 mL 12/22/23 gram-22.74 gram-6.74 gram-5.86 gram solution (Golytely) metformin 500 mg tablet,extended 500 mg PO DAILY #90 tabs 02/15/24 release 24 hr rosuvastatin 20 mg tablet 20 mg PO DAILY #90 tabs 02/15/24 Allergies Allergy/AdvReac Type Severity Reaction Status Date / Time Penicillins Allergy Severe Hives Verified 01/04/24 12:29 warfarin Allergy Unknown Diarrhea Verified 01/04/24 12:29 simvastatin AdvReac Mild achy Verified 01/04/24 12:29 bones, muscles Review of Systems Status of ROS: Reports: 10 or more systems reviewed and unremarkable except as noted in History and below Narrative: Constitutional: No fevers, no weight gain or loss. Eyes: No discharge. No vision changes. HENT: No congestion, no sore throat, no ear pain. Cardiovascular: No chest pain, no palpitations. Respiratory: No shortness of breath, no wheezes, no cough. Gastrointestinal: No abdominal pain, no vomiting, no diarrhea. Genitourinary: No dysuria, no hematuria. Musculoskeletal: Normal range of motion. Skin: No rashes, no pruritis. Neurological: No dizziness, weakness, sensory change, speech change. Endo/Heme/Allergies: No bruising or bleeding. No polydipsia. Pysch: no suicidality, no anxiety, no insomnia. All other systems reviewed and are negative. 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) ?Z96.651 - Presence of right artificial knee joint (ICD-10) History of three vessel coronary artery bypass (~11/2019) ?Z95.1 - Presence of aortocoronary bypass graft (ICD-10) History of prostate biopsy ?Z98.890 - Other specified postprocedural states (ICD-10) History of colonoscopy ?Z98.890 - Other specified postprocedural states (ICD-10) History of coronary artery bypass graft ?Z95.1 - Presence of aortocoronary bypass graft (ICD-10) Family History Mother Stroke, Onset Age: 56 Brother Diabetes Myocardial infarction Father Pancreatic cancer, Onset Age: 52 Social History Narrative: does not use illicit drugs former smoker- quit in 1984 occasional alcohol consumption he estimates 2 drinks twice a week. He does not drink every day. [place] with his [place] near [place]. 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 Code status is full. He endorses house at the lower level without steps. He then S to go up 7 steps to get to the level of the kitchen and living room and another 7 steps up to get to his bedroom. What is your current living situation?: I presently have a place to live Problems where you live: no known problems Problems where you live details: none In the past 12 months, utilities in danger of being shut off: no In the past 12 mos, have been you worried that your food would run out before you had money to buy more?: never true In the past 12 mos, the food you bought just didn't last and you didn't have money to buy more?: never true Highest level of school completed/degree received: high school graduate Smoking Status: Never smoker Do you use any of these nicotine containing products: None Second hand tobacco smoke exposure: Yes How often do you have a drink containing alcohol: 2-4 times a month Alcohol type: hard liquor How many standard drinks containing alcohol do you have on a typical day: 1 or 2 How often do you have six or more drinks on one occasion: Never AUDIT-C Alcohol total score: 2 Non-prescribed substance use: denies use Caffeine: No How often does anyone, including family, friends and others, physically hurt you: never How often does anyone, including family, friends and others, insult or talk down to you: never How often does anyone, including family, friends and others, threaten you with harm: never How often does anyone, including family, friends and others, scream or curse at you: never service: No Exam Narrative: Exam Narrative: Constitutional: Well-developed, well-nourished, no acute distress. HEENT: Normocephalic, atraumatic. Neck: Normal range of motion. Nontender. Supple. Heart: Irregular. No murmurs. Normal rate. Intact distal pulses. Lungs: Clear to auscultation. No chest discomfort. No wheezes, rhonchi, or rales. Abdomen: Normal bowel sounds. Nontender. No rebound tenderness. Genitalia: Deferred. Back: No midline tenderness. Normal range of motion. Extremities: Normal range of motion. No injury. Skin: Intact. No rash. Warm. No erythema or pallor. Neurologic: No altered sensation. No weakness. Alert and oriented. Psychiatric: No suicidality. No anxiety or depression. No insomnia. Nursing notes and vitals signs are reviewed. Const: Vital Signs, click to edit/add: Vital Signs - 24 hr 03/22/24 21:29 03/22/24 22:50 03/22/24 23:00 Temperature 97.2 F L Pulse Rate 104 H 99 Pulse Rate [Left P ulse Oximeter] 114 H Respiratory Rate 20 Blood Pressure [Ri ght Upper Arm] 130/68 Pulse Oximetry 95 91 94 Oxygen Delivery Me thod Room Air 03/22/24 23:15 Temperature Pulse Rate 120 H Pulse Rate [Left P ulse Oximeter] Respiratory Rate Blood Pressure [Ri ght Upper Arm] Pulse Oximetry 93 Oxygen Delivery Me thod Course Vital Signs Vital signs: Initial Vital Signs Temperature 97.2 F L 03/22/24 21:29 Temperature Source Temporal Artery Scan 03/22/24 21:29 Pulse Rate 114 H 03/22/24 21:29 Pulse Rhythm Regular 03/22/24 21:29 Respiratory Rate 20 03/22/24 21:29 Blood Pressure 130/68 03/22/24 21:29 Blood Pressure Mean 88 03/22/24 21:29 Blood Pressure Position Sitting 03/22/24 21:29 Pulse Oximetry 95 03/22/24 21:29 Oxygen Delivery Method Room Air 03/22/24 21:29 Vital Signs Temperature 97.2 F L 03/22/24 21:29 Pulse Rate 114 H 03/22/24 21:29 Respiratory Rate 20 03/22/24 21:29 Blood Pressure 130/68 03/22/24 21:29 Pulse Oximetry 95 03/22/24 21:29 Oxygen Delivery Method Room Air 03/22/24 21:29 Temperature 97.2 F L 03/22/24 21:29 Pulse Rate 120 H 03/22/24 23:15 Respiratory Rate 20 03/22/24 21:29 Blood Pressure 130/68 03/22/24 21:29 Pulse Oximetry 93 03/22/24 23:15 Oxygen Delivery Method Room Air 03/22/24 21:29 Medical Decision Making MDM Narrative Medical decision making narrative: This patient comes in reporting chills and rigors prior to arrival here. He is no longer experiencing these symptoms. He arrives here with normal vital signs. He does have chronic atrial fibrillation but his rate has been controlled. He is on anticoagulants. He does not report any pain. An IV was established and labs are acquired. These returned with reassuring findings. The patient continues to feel back to normal and was able to get up and ambulate to the bathroom without any difficulty. He is okay to be discharged home. Lab Data Labs: Lab Results 03/22/24 03/22/24 03/22/24 Range/Units 21:35 21:54 22:05 WBC 6.73 (4.50-11.00) K/uL RBC 4.38 (4.30-5.90) m/uL Hgb 13.8 (13.5-17.5) gm/dL Hct 40.2 (37.0-53.0) % MCV 92 (80-100) fL MCH 32 (26-34) pg MCHC 34 (32-36) gm/dL RDW Coeff of Ambrosio 13.6 (11.5-15.5) % Plt Count 108 L (140-440) K/uL Neut % (Auto) 89.9 H (42.0-72.0) % Lymph % (Auto) 4.3 L (20-44) % [place] % (Auto) 4.5 (0.0-11.0) % Eos % (Auto) 0.3 (0.0-7.0) % Baso % (Auto) 0.4 (0.0-3.0) % Neut # (Auto) 6.10 (1.7-7.0) K/uL Lymph # (Auto) 0.30 L (0.90-2.90) K/uL [place] # (Auto) 0.30 (0.00-0.90) K/UL Eos # (Auto) 0.02 (0.00-0.50) K/uL Baso # (Auto) 0.03 (0.00-0.30) K/uL Abs Immat Gran (auto) 0.04 (0.00-0.30) K/uL Imm/Tot Granulo (auto) 0.6 % Sodium 135 (135-149) mmol/L Potassium 4.5 (3.6-5.1) mmol/L Chloride 104 (96-114) mmol/L Carbon Dioxide 17 L (20-32) mmol/L Anion Gap 14 (7-15) mEq/L BUN 25 (7-30) mg/dL Creatinine 1.3 (0.5-1.5) mg/dL Estimated Creat Clear 43.12 Estimated GFR 55 ml/min Glucose 182 H (60-115) mg/dL Calcium 9.2 (8.4-10.6) mg/dL SARS-CoV-2 (PCR) Negative SARS-CoV-2 (Negative) Influenza Type A (PCR) Negative PCR FLU A (Negative) Influenza Type B (PCR) Negative PCR FLU B (Negative) RSV (PCR) Negative PCR RSV (Negative) POC Troponin I 0.01 (0.01-0.04) ng/ml ECG Data Attestation: I personally reviewed and interpreted this ECG as follows: Interpretation: Atrial fibrillation. Rate is 97 beats per minute. There are no specific ST or T-wave abnormalities. Discharge Plan Discharge Clinical Impression: Rigors Patient Disposition: Home, Self-Care Condition: Improved Additional Instructions: Continue current plans. Follow up with MD return if symptoms are recurrent or worsening. Prescriptions: No Action (DME) Diabetic Test Strips Misc See Rx Instructions .Route Rx Instructions: As directed mecobalamin (vitamin B12) 1,000 mcg tablet,chewable 1,000 mcg PO DAILY magnesium oxide 500 mg tablet 500 mg PO BID apixaban 5 mg tablet 5 mg PO BID Qty: 180 3RF carvedilol 6.25 mg tablet 6.25 mg PO BID Qty: 180 3RF Jardiance 10 mg tablet 10 mg PO DAILY Qty: 90 3RF finasteride 5 mg tablet 5 mg PO DAILY Qty: 90 3RF furosemide 20 mg tablet 20 mg PO QAM Qty: 90 3RF losartan 25 mg tablet 25 mg PO DAILY Qty: 90 3RF omeprazole 20 mg capsule,delayed release(DR/EC) 20 mg PO DAILY Qty: 90 3RF spironolactone 25 mg tablet 12.5 mg PO DAILY Qty: 45 4RF tamsulosin 0.4 mg capsule 0.4 mg PO DAILY Qty: 90 3RF acetaminophen 500 mg Tablet 500 - 1,000 mg PO Q4-6H MDD 4,000 mg per day PRNQty: 100 0RF ferrous gluconate 324 mg (38 mg iron) tablet 324 mg PO DAILY Qty: 90 3RF peg 3350-electrolytes [Golytely] 236-22.74-6.74 -5.86 gram recon soln 240 ml PO Q10M Qty: 4000 0RF Rx Instructions: until fecal effluent is clear rosuvastatin 20 mg tablet 20 mg PO DAILY Qty: 90 0RF metformin 500 mg tablet extended release 24 hr 500 mg PO DAILY Qty: 90 0RF Follow Up/Referrals: Jessica Villalobos MD [Primary Care Provider] - Stand Alone Forms: [facility] Info Instructions
[2024-03-22 22:08] LABS: Basophils Absolute Auto 0.03 K/uL (0.00-0.30); Basophils Percent Auto 0.4 % (0.0-3.0); Eosinophils Absolute Auto 0.02 K/uL (0.00-0.50); Eosinophils Percent Auto 0.3 % (0.0-7.0); Hematocrit 40.2 % (37.0-53.0); Hemoglobin* 13.8 gm/dL (13.5-17.5); Immature Granulocytes Abs Auto 0.04 K/uL (0.00-0.30); Immature Granulocytes Pct Auto 0.6 %; Lymphocytes Percent Auto 4.3 % (20-44); Mean Corpuscular HGB Conc 34 gm/dL (32-36); Mean Corpuscular Hemoglobin 32 pg (26-34); Mean Corpuscular Volume 92 fL (80-100); Monocytes Percent Auto 4.5 % (0.0-11.0); Neutrophils Percent Auto 89.9 % (42.0-72.0); Platelet Count* 108 K/uL (140-440); RDW Coefficient of Variation % 13.6 % (11.5-15.5); Red Blood Count 4.38 m/uL (4.30-5.90); White Blood Count* 6.73 K/uL (4.50-11.00)
[2024-03-22 22:11] LABS: Slide Review Reflex No
[2024-03-22 22:16] LABS: Troponin, Point-of-Care* 0.01 ng/ml (0.01-0.04)
[2024-03-22 22:19] LABS: PCR FLU A Negative PCR FLU A (Negative); PCR FLU B Negative PCR FLU B (Negative); PCR RSV Negative PCR RSV (Negative); SARS PCR* Negative SARS-CoV-2 (Negative)
[2024-03-22 22:20] LABS: Chloride* 104 mmol/L (96-114); Sodium* 135 mmol/L (135-149)
[2024-03-22 22:21] LABS: Potassium* 4.5 mmol/L (3.6-5.1)
[2024-03-22 22:23] LABS: Creatinine* 1.3 mg/dL (0.5-1.5); Est. Creatinine Clearance* 43.12; Estimated Glomerular Filt Rate 55 ml/min
[2024-03-22 22:24] LABS: Anion Gap 14 mEq/L (7-15); Blood Urea Nitrogen* 25 mg/dL (7-30); Calcium* 9.2 mg/dL (8.4-10.6); Carbon Dioxide* 17 mmol/L (20-32); Glucose* 182 mg/dL (60-115)
[2024-03-22 22:50] VITALS: PULSE 104; O2SAT 91
[2024-03-22 23:00] VITALS: PULSE 99; O2SAT 94
[2024-03-22 23:15] VITALS: PULSE 120; O2SAT 93
== END 2024-03-22 23:53 | disposition home or self-care (01) ==
PROVIDERS: Emergency Provider Emergency Medicine Emergency Medical Services; PCP Family Medicine
DX: R68.89 Other general symptoms and signs (principal)
CPT/HCPCS: 36415; 80048; 84484; 85025; 87631; 93005; 99283; 99284

== ENCOUNTER 2024-07-04 08:42 | Outpatient (CLI) | payer MEDICARE, SELFPAY | END 2024-07-04 08:43 | disposition home or self-care (01) | PROVIDERS: PCP Family Medicine; Visit Provider Family Medicine | DX: I10 Essential (primary) hypertension (principal); E11.9 Type 2 diabetes mellitus without complications; E78.5 Hyperlipidemia, unspecified; R97.20 Elevated prostate specific antigen [PSA]; D61.818 Other pancytopenia; I50.30 Unspecified diastolic (congestive) heart failure; I48.91 Unspecified atrial fibrillation; Z12.5 Encounter for screening for malignant neoplasm of prostate | CPT/HCPCS: 80053; 82043; 82570; 82607; G0103 ==

== ENCOUNTER 2024-07-17 08:47 | Outpatient (CLI) | payer MEDICARE, SELFPAY | END 2024-07-17 08:48 | disposition home or self-care (01) | LOC: RAD 08:48 | PROVIDERS: PCP Family Medicine; Visit Provider Internal Medicine | DX: I25.10 Atherosclerotic heart disease of native coronary artery without angina pectoris (principal); D61.818 Other pancytopenia; I11.0 Hypertensive heart disease with heart failure; I50.32 Chronic diastolic (congestive) heart failure; Z51.89 Encounter for other specified aftercare; M54.59 Other low back pain; I34.0 Nonrheumatic mitral (valve) insufficiency; I07.1 Rheumatic tricuspid insufficiency; I48.91 Unspecified atrial fibrillation; Z79.01 Long term (current) use of anticoagulants; E11.9 Type 2 diabetes mellitus without complications; E78.5 Hyperlipidemia, unspecified; K76.0 Fatty (change of) liver, not elsewhere classified; N40.0 Benign prostatic hyperplasia without lower urinary tract symptoms; E66.9 Obesity, unspecified; Z13.29 Encounter for screening for other suspected endocrine disorder; Z13.21 Encounter for screening for nutritional disorder | CPT/HCPCS: 36415; 76700; 82525; 82728; 82746; 83540; 83550; 84443; 85025; 85045; 93306; 97110; 97140 ==

== ENCOUNTER 2024-07-17 09:39 | Outpatient (CLI) | payer MEDICARE, SELFPAY ==
--- NOTE | 2024-07-17 10:45 | CRLHL7_ITS ---
For Patients: As a result of the Century Cures Act, medical imaging exams and procedure reports are released immediately into your electronic medical record. You may view this report before your referring provider. If you have questions, please contact your health care provider. CLINICAL HISTORY: pancytopenia COMPARISON: 05/05/2023 aorta exam TECHNIQUE: Real time guadalupe scale imaging and color Doppler analysis was performed of the abdomen. FINDINGS: Sonographic imaging demonstrates normal size and coarsened/increased echotexture of the liver. The spleen measures 14.1 cm. The pancreas is not well visualized. The visualized proximal abdominal aorta and IVC appear normal. There is no evidence of ascites. The gallbladder is of normal size and there is no evidence of sludge or stones within the gallbladder lumen. The gallbladder wall measures 3 mm in thickness. The common bile duct measures 3 mm in size within the kevin hepatis. The kidneys appear symmetric. The right kidney measures 10.3 cm in length and the left kidney measures 11.2 cm. There is no evidence of a renal calculus or hydronephrosis. IMPRESSION: Hepatic steatosis. No gallstones. Splenomegaly. Dictated by Mekhi Carrillo MD @ 07/17/2024 11:41:57 AM (Electronically Signed)
== END 2024-07-17 09:40 | disposition home or self-care (01) ==
LOC: US 09:40
PROVIDERS: PCP Family Medicine; Visit Provider Internal Medicine Hematology & Oncology
DX: D61.818 Other pancytopenia (principal); K76.0 Fatty (change of) liver, not elsewhere classified; N40.0 Benign prostatic hyperplasia without lower urinary tract symptoms
CPT/HCPCS: 76700

== ENCOUNTER 2024-07-17 14:00 | Outpatient (RCR) | payer MEDICARE, SELFPAY ==
--- NOTE | 2024-07-13 08:19 | PT.OPE ---
PT [place] [facility] Eval PT [facility] Eval Start: 07/11/24 15:50 Freq: Status: Active Protocol: Document 07/11/24 15:50 CINDY (Rec: 07/11/24 15:52 CINDY [id number]) E-signed By Sanjay Pelletier DPT, MS Physical Therapy Outpatient Evaluation Insurance Information Recert Due Date 10/09/24 Insurance Name Medicare B Medical Diagnosis Low back pain, unspecified Treating Diagnosis Decreased B LS ROM and flexibility, B LE and core weakness, and imbalance Subjective Preferred Name Aditya Subjective Pt presents to PT with c/o B LS pain of insidious origin over the past several years. Denies previous LS injuries with gradual worsening of sxs which has limited his seng to walking and activities in WBing positions. Describes sxs as a sharp ache across B LS denying radicular sxs. Denies bowel or bladder changes. PSH of R TKA, R ankle ORIF and open-heart surgery. 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 Aggravating activities: lifting, walking > 50 yards, standing, bending, twisting, carrying objects. Relieving factors: rest, heat, Tylenol. Pain Comments 10/19 Current Work Status Retired Precautions Therapy Limitations/Systems Review Not Limited Objective Functional Test Performed & Score Modified OSWESTRY: 42% Assessment Assessment/Impression Objectively pt displays decreased B LS ROM and flexibility, B LE and core weakness, and imbalance. Pt displays signs and symptoms consistent with mechanical LS pain without radicular sxs. Significant tightness found in B LS paraspinals and QL with good response to combination MT, stretching and strengthening exercises today. He will benefit from continued skilled PT intervention, progressing as able. Primary Functional Limitations Lifting, walking >50 yards, standing, bending, twisting, carrying objects Plan of Care Rehabilitation Potential Excellent Physical Therapy Goals Short-term goals to be completed in 4 weeks: 1. Pt will report improved LS pain with walking >1000 feet to safely attend medical appt and perform household activities. 2. Pt will display >25% improvement in B LS flex and rot AROM to WFL without pain to safely back up his car and tow picker objects off the floor Long-term goals to be completed in 10 weeks: 1. Pt will be independent and compliant with HEP 2. Pt will display improved B ABD and ext, and abdominal strength of 5/5 to improve tolerance to work activities. 3. Pt will be able to walk for >8 minutes with LS pain <2/10 to improve cardiovascular health. 4. Pt will report >12 point improvement in modified OSWESTRY questionnaire to significantly improve seng to daily activities. Coordination/Communication With Referral Source Treatment Plan/Direct Interventions Joint Mobilization,Manual Therapy,Neuromuscular Re-ed, Therapeutic Exercises Frequency/Duration 1x per week for 6-10 visits Patient Will Be Discharged From Therapy Completion of LTG(s),Skills Plateau,Independent w/HEP, Independently Progressing Evaluation Billing Untimed Code Treatment Minutes 24 Complexity Moderate Certification Information Initial Certification Date 07/11/24 Ending Certification Date 10/09/24 Provider Signature Required Yes Provider Signature Shows Agreement With POC & Medical Necessity Physician NPI Number Write NPI# Here Physician Comment/Change : Physician Signature & Date Requested Please Sign/Date Here
== END 2024-11-14 23:59 | disposition home or self-care (01) ==
PROVIDERS: PCP Family Medicine; Visit Provider Family Medicine
DX: M54.50 Low back pain, unspecified (principal); Z51.89 Encounter for other specified aftercare
CPT/HCPCS: 93306; 97110; 97140; 97162

== ENCOUNTER 2024-11-13 10:23 | Outpatient (CLI) | payer MEDICARE, SELFPAY ==
--- NOTE | 2024-11-13 11:00 | CRLHL7_ITS ---
For Patients: As a result of the 21st Century Cures Act, medical imaging exams and procedure reports are released immediately into your electronic medical record. You may view this report before your referring provider. If you have questions, please contact your health care provider. Indication: PANCYTOPENIA, SPLENOMEGALY, ELEVATED PROSTATE SPECIFIC ANTIGEN Technique: CT Chest/Abd/Pelvis W/ 117CC ISOVUE-370 intravenous contrast Please note that all CT scans at this facility use dose modulation, iterative reconstruction, and/or weight-based dosing when appropriate to reduce radiation dose to as low as reasonably achievable. Comparison: Ultrasound abdomen 07/17/2024 Findings: In the chest, small calcified lymph nodes are present adjacent to the distal esophagus and in the subcarinal space. Additional small calcified lymph nodes in the right mediastinum and right hilum. Postop changes median sternotomy and CABG/atrial appendage clipping. Mild subareolar gynecomastia is present bilaterally. Cardiomegaly. No pericardial effusion. Incidental retroesophageal course of the right subclavian artery. Scarring is present throughout the right mid and lower lung zones with subpleural curvilinear densities containing areas of fat. No suspicious pulmonary nodule. Right pleural thickening is noted. Ankylosis lower and midthoracic spine without acute fracture. No blastic lesion. In the abdomen, fatty infiltration of the liver is noted. A few calcifications are located adjacent to the dome of the liver. Calcifications in the spleen are present. The spleen measures 16.7 cm. No splenic lesion. Pancreatic parenchyma normal. Normal gallbladder. Adrenal glands are within normal limits. Normal kidneys. Atherosclerotic changes. A few scattered sub cm retroperitoneal lymph nodes are present. In the pelvis, the prostate is heterogeneous and enlarged with some lobular mass effect upon the inferior bladder. No bladder stones. Fat filled right inguinal hernia incidentally noted. Bilateral common femoral lymph nodes are present measuring up to 1.4 cm. Bilateral pelvic sidewall lymph nodes are noted measuring up to 1 cm. Mild colonic diverticulosis. No diverticulitis. No bowel obstruction or free air. Normal appendix. No free fluid. No abscess. Degenerative changes are present, particularly at L3-4 and L1-2 superimposed upon chronic ankylosis. No acute fracture. Impression: Mildly prominent bilateral pelvic sidewall and common femoral lymph nodes measuring up to 1.4 cm. Numerous sub cm retroperitoneal lymph nodes. Enlarged and slightly heterogeneous prostate. No hydronephrosis. Fatty liver. Sequela of granulomatous disease. Splenomegaly. No ascites. Cardiomegaly. No CHF. Chronic changes to the right lung including pleural thickening and patchy round atelectasis with associated subsegmental scarring. No suspicious pulmonary nodule. No suspicious osseous lesion. Chronic ankylosis thoracolumbar spine. Please note that all CT scans at this facility use dose modulation, iterative reconstruction, and/or weight-based dosing when appropriate to reduce radiation dose to as low as reasonably achievable. Dictated by Mekhi Carrillo MD @ 11/13/2024 3:47:31 PM (Electronically Signed)
[2024-11-13 11:20] LABS: Creatinine* 1.3 mg/dL (0.5-1.5); Estimated Glomerular Filt Rate 55 ml/min
== END 2024-11-13 10:24 | disposition home or self-care (01) ==
LOC: CT 10:24
PROVIDERS: PCP Family Medicine; Visit Provider Internal Medicine Hematology & Oncology
DX: D61.818 Other pancytopenia (principal); R59.0 Localized enlarged lymph nodes; I51.7 Cardiomegaly; K76.0 Fatty (change of) liver, not elsewhere classified; M43.25 Fusion of spine, thoracolumbar region; R16.1 Splenomegaly, not elsewhere classified; R97.20 Elevated prostate specific antigen [PSA]
CPT/HCPCS: 36415; 71260; 74177; 82565; Q9967

== ENCOUNTER 2024-12-27 11:00 | Outpatient (RCR) | payer MEDICARE, SELFPAY ==
[2024-07-17 12:16] LABS: Hematocrit 38.6 % (37.0-53.0); Hemoglobin* 13.2 gm/dL (13.5-17.5); Immature Granulocytes Abs Auto 0.00 K/uL (0.00-0.30); Immature Granulocytes Pct Auto 0.0 %; Immature Reticulocyte Fraction 17.1 % (2.3-13.4); Mean Corpuscular HGB Conc 34 gm/dL (32-36); Mean Corpuscular Hemoglobin 32 pg (26-34); Mean Corpuscular Volume 94 fL (80-100); RDW Coefficient of Variation % 13.9 % (11.5-15.5); Red Blood Count 4.10 m/uL (4.30-5.90); Reticulocyte Hemoglobin Equivi 32.7 pg (29.0-35.0); Reticulocytes Absolute 0.09 # (0.03-0.08); White Blood Count* 3.24 K/uL (4.50-11.00)
[2024-07-17 12:38] LABS: Lymphocytes Absolute Auto 0.90 K/uL (0.90-2.90); Slide Review Reflex No
[2024-07-17 13:48] LABS: Iron* 98 ug/dL (49-181)
[2024-07-17 13:57] LABS: Percent Iron Saturation 29 % (20-50); Total Iron Binding Capacity 334 ug/dL (261-462)
[2024-07-18 09:02] LABS: Folate, Serum 15.8 ng/mL (>=5.9)
[2024-07-18 10:26] LABS: Copper, Serum/Plasma 96.2 ug/dL (70.0-140.0)
[2024-11-13 10:51] LABS: Hematocrit 37.9 % (37.0-53.0); Hemoglobin* 13.0 gm/dL (13.5-17.5); Immature Granulocytes Abs Auto 0.00 K/uL (0.00-0.30); Immature Granulocytes Pct Auto 0.5 %; Lymphocytes Absolute Auto 0.90 K/uL (0.90-2.90); Mean Corpuscular HGB Conc 34 gm/dL (32-36); Mean Corpuscular Hemoglobin 32 pg (26-34); Mean Corpuscular Volume 94 fL (80-100); RDW Coefficient of Variation % 14.1 % (11.5-15.5); Red Blood Count 4.04 m/uL (4.30-5.90); White Blood Count* 3.66 K/uL (4.50-11.00)
[2024-11-13 10:52] LABS: Slide Review Reflex No
[2024-11-13 12:08] LABS: Hepatitis C Virus Antibody* Negative (Negative)
[2024-11-13 16:00] LABS: HIV 1/2/P24 Combo Screen* Negative (Negative)
[2024-12-27 10:45] LABS: Hematocrit 36.9 % (37.0-53.0); Hemoglobin* 12.8 gm/dL (13.5-17.5); Immature Granulocytes Abs Auto 0.00 K/uL (0.00-0.30); Immature Granulocytes Pct Auto 0.0 %; Mean Corpuscular HGB Conc 35 gm/dL (32-36); Mean Corpuscular Hemoglobin 33 pg (26-34); Mean Corpuscular Volume 94 fL (80-100); RDW Coefficient of Variation % 14.3 % (11.5-15.5); Red Blood Count 3.94 m/uL (4.30-5.90); White Blood Count* 4.13 K/uL (4.50-11.00)
[2024-12-27 10:48] LABS: Lymphocytes Absolute Auto 1.20 K/uL (0.90-2.90); Slide Review Reflex No
== END 2025-01-07 23:59 | disposition home or self-care (01) ==
LOC: CCIC 11:00
PROVIDERS: PCP Family Medicine; Referring Provider Family Medicine; Visit Provider Internal Medicine Hematology & Oncology
DX: D61.818 Other pancytopenia (principal); R16.1 Splenomegaly, not elsewhere classified; R97.20 Elevated prostate specific antigen [PSA]; K76.0 Fatty (change of) liver, not elsewhere classified; I48.91 Unspecified atrial fibrillation; Z79.01 Long term (current) use of anticoagulants
CPT/HCPCS: 36415; 71260; 74177; 82525; 82565; 82728; 82746; 83540; 83550; 84443; 85025; 85045; 86703; 86803; 99202; 99204; 99213; 99214; 99215; G0463; Q9967

== ENCOUNTER 2025-03-06 11:49 | Outpatient (CLI) | payer MEDICARE, SELFPAY ==
--- NOTE | 2025-03-06 13:00 | CRLHL7_ITS ---
For Patients: As a result of the Century Cures Act, medical imaging exams and procedure reports are released immediately into your electronic medical record. You may view this report before your referring provider. If you have questions, please contact your health care provider. INDICATION: Pancytopenia. Splenomegaly. TECHNIQUE: Volumetric helical scanning of the chest, abdomen and pelvis was performed with 95 cc of Isovue 370 contrast material IV. Coronal and sagittal reconstructions were obtained. COMPARISON: Chest/abdomen/pelvis CT of 11/13/2024 FINDINGS: CHEST: No axillary, mediastinal or hilar adenopathy is apparent. Scarring in both upper lobes is again demonstrated and in the right lower lobe. No acute infiltrate is noted. There is no significant airway abnormality. No pleural effusion is demonstrated. The heart is normal in size. Postop changes of coronary bypass are demonstrated. A left atrial appendage closure device is again demonstrated. ABDOMEN/PELVIS: The liver is grossly negative apart from possible mild fatty change. There is stable mild splenomegaly. No retroperitoneal, pelvic, or mesenteric lymphadenopathy is evident. The bile ducts are within normal limits. The adrenal glands and pancreas are negative. The kidneys are within normal limits. The bowel is unremarkable. No free fluid is demonstrated. The prostate is mild to moderately enlarged. No lytic or blastic bone lesion is identified. IMPRESSION: 1. No lymphadenopathy evident. 2. Unchanged mild splenomegaly. 3. Possible mild fatty change in the liver. 4. Mild to moderate prostate enlargement. Please note that all CT scans at this facility use dose modulation, iterative reconstruction, and/or weight-based dosing when appropriate to reduce radiation dose to as low as reasonably achievable. Dictated by Ray Villanueva MD @ 03/07/2025 12:15:09 PM (Electronically Signed)
== END 2025-03-06 11:50 | disposition home or self-care (01) ==
LOC: CT 11:50
PROVIDERS: PCP Family Medicine; Visit Provider Internal Medicine Hematology & Oncology
DX: D61.818 Other pancytopenia (principal); R16.1 Splenomegaly, not elsewhere classified; K76.0 Fatty (change of) liver, not elsewhere classified; N40.0 Benign prostatic hyperplasia without lower urinary tract symptoms; Z95.1 Presence of aortocoronary bypass graft
CPT/HCPCS: 71260; 74177; Q9967

== ENCOUNTER 2025-03-13 16:24 | Outpatient (REF) | payer MEDICARE, SELFPAY ==
[2025-03-13 18:01] LABS: Vitamin B12* 982 pg/mL (243-894)
--- OUTSIDE RECORDS SUMMARY | 2025-03-14 00:20 | XMS_ITS | Clinical Summary ---
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 30 capsule 6 10/29/19 11 Active Omeprazole 20 mg tablet Take 1 tablet by mouth once daily. 0 04/21/19 18 Active nitroglycerin (NITROSTAT) 0.4 mg sublingual tabletIndications:D OE (dyspnea on exertion) Place 1 tablet under the tongue every 5 minutes if needed. DO NOT USE VIAGRA/CIALIS/LE VITRA WITHIN 48 HOURS OF NITROGLYCERIN 25 tablet 2 0 5:16 PM CDT 10/03/19 20 Active metFORMIN (GLUCOPHAGE XR) 500 mg Extended-Release tablet Take 500 mg by mouth 2 times daily with meals. 11/10/19 20 Active acetaminophen (TYLENOL) 325 mg tablet Take 1-2 tablets by mouth every 4 hours if needed (pain or headache). Max acetaminophen dose: 4000mg in 24 hrs. PICK THIS UP OVER THE COUNTER. 0 12/01/19 20 Active apixaban (ELIQUIS) 5 mg tabletIndications:p revent thromboembolism in chronic atrial fibrillation Take 1 tablet by mouth 2 times daily. Indications: Treatment to Prevent Blood Clots in Chronic Atrial Fibrillation 60 tablet 0 4:29 PM CDT 12/01/19 20 Active ferrous gluconate 324 mg (37 mg iron) tabletIndications:I ingris deficiency anemia, unspecified iron deficiency anemia type Take 1 tablet by mouth once daily with a meal. If insurance does not cover, PICK THIS UP OVER THE COUNTER. 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 30 tablet 0 4:29 PM CDT 12/01/19 20 Active probenecid-colchici ne (COL-BENEMID) 500-0.5 mg per tabletIndications:G out, unspecified cause, unspecified chronicity, unspecified site Take 1 tablet by mouth 2 times daily. 60 tablet 0 4:29 PM CDT 12/01/19 20 Active Additional Information Patient taking differently:1 tablet. OralDAILY EVENING, Informant: Patient's Recall, Reported on 05/02/2020 magnesium oxide (MAG-OX) 400 mg tablet Take 1 tablet by mouth 2 times daily. 0 01/10/20 20 Active finasteride (PROSCAR) 5 mg tablet Take 5 mg by mouth every morning. Active Thiamine HCl (VITAMIN B1) 100 mg tablet Take 1 Tablet (100 mg) by mouth once daily. 07/02/19 22 Active losartan (COZAAR) 25 mg tabletIndications:H ypertension,Coronar y artery disease of nondalton artery of nondalton heart with stable angina pectoris TAKE 1 TABLET BY MOUTH TWO TIMES DAILY. 180 Tablet 3 06/11/19 24 Active carvediloL (COREG) 6.25 mg tabletIndications:P ersistent atrial fibrillation (HC),Dyspnea, unspecified type Take 1 Tablet (6.25 mg) by mouth two times daily with meals. 180 Tablet 3 06/11/19 24 Active spironolactone (ALDACTONE) 25 mg tabletIndications:H ypertension,Coronar y artery disease of nondalton artery of nondalton heart with stable angina pectoris,Bilateral lower extremity edema Take 0.5 Tablets (12.5 mg) by mouth once daily. 45 Tablet 3 06/11/19 24 Active empagliflozin (JARDIANCE) 10 mg tabletIndications:H ypertension,Coronar y artery disease of nondalton artery of nondalton heart with stable angina pectoris Take 1 Tablet (10 mg) by mouth once daily. 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 90 Tablet 3 11/24/19 24 Active Active Problems Problem Noted Date Diagnosed Date Valvular heart disease 07/06/2024 Debility 11/28/2019 BPH (benign prostatic hyperplasia) 11/28/2019 Pericardial effusion 11/19/2019 Cardiac tamponade 11/19/2019 Pericardial effusion 11/18/2019 Acute blood loss as cause of postoperative anemi a 11/18/2019 S/P CABG x 3 11/07/2019 Overview (11/18/2019): Pt was taken to the OR on 11/07/19 and underwent Minimally Invasive Coronary Surgery (MICS) Off-Pump Coronary Artery Bypass Grafting x 3 (CHRISTIANSON - LAD, SVG - OM, SVG - PDA), Left Atrial Appendage Exclusion. There were no complications with the procedure, and patient was taken to the ICU in stable condition. 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 11/02/2019 Persistent atrial fibrillation 09/22/2019 Overview (01/11/2020): Persistent atrial fibrillation - diagnosed June 2019 - status post HENRIETTA ligation at time of CABG October 2019 - on Eliquis 5 mg PO BID started on 12/01/2019 *status post successful DCCV on 01/11/2020 Hypertension 09/22/2019 T2DM (type 2 diabetes mellitus) 09/22/2019 Dyslipidemia 09/22/2019 Gout 09/22/2019 Elevated PSA 12/21/2016 Resolved Problems Problem Noted Date Diagnosed Date Resolved Date Abnormal cardiovascular stress test 10/03/2019 11/18/2019 Overview (10/03/2019): 06/29/2019 Pharmacological myocardial perfusion stress test: small area of mild ischemia in the base and inferolateral wall, small area of moderate ischemia in the apical lateral wall, normal LVEF at 65% with no wall motion abnormalities. SMITH (dyspnea on exertion) 09/22/2019 Family History Medical History Relation Name Comments No Known Problems Father No Known Problems Mother Relation Name Status Comments Father Mother Social History Tobacco Use Types Packs/Day Years Used Date Smoking Tobacco: Former Cigarettes 0.5 32 0 04/30/1963 - 04/30/1995 Smokeless Tobacco: Never Tobacco Cessation:Counseling Given: Yes Alcohol Use Standard Drinks/Week Comments Yes 2 (1 standard drink = 0.6 oz pur e alcohol) Social Connections Answer Date Recorded Frequency of Communication with Friends and Fami ly Not on file 04/07/2021 Financial Resource Strain Answer Date R ecorded Difficulty of Paying Living Expenses Not on file 04/07/2021 Difficulty of Paying Living Expenses Not on file 04/07/2021 Sex and Gender Information Value Date Recorded Sex Assigned at Not on file 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 Gender Identity Not on file Sexual Orientation Not on file Obstetrics History Last Filed Vital Signs Vital Sign Reading Time Taken Comments Blood Pressure 144/76 09/08/2022 10:47 AM CDT Pulse 81 09/08/2022 10:47 AM CDT Temperature 36.8 C (98.3 F) 07/01/2021 11:31 AM CDT Respiratory Rate 20 07/01/2021 11:31 AM CDT Oxygen Saturation 96% 09/08/2022 10:47 AM CDT Inhaled Oxygen Concentration - - Weight 108.4 kg (239 lb) 09/08/2022 10:47 AM CDT Height 172.7 cm (5' 7.99) 09/08/2022 10:47 AM C DT Body Mass Index 36.35 09/08/2022 10:47 AM CDT Plan of Treatment Health Maintenance Due Date Last Done Comments Tetanus booster 1953 Depression screening for age 12+ 1954 Pneumococcal series for age 50+ (1 of 2 - PCV) 1961 Zoster (shingles) series for age 50+ (1 of 2) 1992 Medicare Wellness for age 65+ 11/18/2007 RSV vaccine for adults or (1 - 1-dose 75+ series) 2017 BMI (ht and wt on same day) for age 18+ 09/09/2023 09/08/2022, 08/18/2022, 07/14/2022, Additional history exists COVID-19 vaccine series (2024- season) 2024 12/30/2023, 04/14/2023, 02/07/2021, Additional history exists Influenza Vaccine (#1) 2024 Hepatitis B series for 19+ Aged Out N o longer eligible based on patient's age to complete this topic Medical Devices Implanted Type Area Office Receptionist Device Identifier Shelf Expiration Date Model / Serial / Lot Plate Sternal X 8 Hole Sternalock - [id number] Implanted:Qty: 3 on 11/20/2019 by Eula Leija MD at [facility] N/A: [employer] [id number]# / / Screw Sternal 2.4x18mm Sternalock [employer] - [id number] Implanted:Qty: 8 on 11/20/2019 by Elua Leija MD at [facility] N/A: [employer] [id number]# / / Screw Sternal 2.4x16mm Sternalock [employer] - [id number] Implanted:Qty: 12 on 11/20/2019 by Eula Leija MD at [facility] N/A: [employer] [id number]# / / Screw Sternal 2.4x20mm Sternalock [employer] - [id number] Implanted:Qty: 8 on 11/20/2019 by Eula Leija MD at [facility] N/A: [employer] [id number]# / / Plate Sternal L 4 Hole 100deg Sternalock - [id number] Implanted:Qty: 1 on 11/20/2019 by Eula Leija MD at [facility] N/A: [employer] [id number]# / / Insurance * Guarantor: Jose Luis Fernandez Account Type Relation to Patient Date of Phone Billing Address Personal/Family Self 1940 [address] [place] [address] [employer] MEDICARE ADVANTAGE MR Advance Directives * Full Code (Latest Code Status on File) Date Activated Date Inactivated Comments 05/02/2020 10:27 AM 05/02/2020 3:44 PM Question Answer Comments Code Status Discussion: Per Existing Order * Full Code Date Activated Date Inactivated Comments 01/11/2020 11:20 AM 01/11/2020 5:38 PM Question Answer Comments Code Status Discussion: Per Existing Order * Full Code Date Activated Date Inactivated Comments 11/28/2019 11:12 AM 12/02/2019 2:46 PM Question Answer Comments Code Status Discussion: Per Existing Order * Full Code Date Activated Date Inactivated Comments 11/19/2019 1:02 AM 11/28/2019 10:56 AM * Full Code Date Activated Date Inactivated Comments 10/03/2019 10:38 AM 10/03/2019 8:17 PM Care Teams Ground Water Technician Relationship Specialty Start Date End Date None . PCP - General 09/08/22
== END 2025-03-13 16:25 | disposition home or self-care (01) ==
LOC: LAB 16:24
PROVIDERS: PCP Family Medicine; Visit Provider Internal Medicine Hematology & Oncology
DX: D61.818 Other pancytopenia (principal); R16.1 Splenomegaly, not elsewhere classified
CPT/HCPCS: 82607; 82728